=== PATIENT | female | born 1995 | race Caucasian/White ===

== ENCOUNTER 2020-06-20 11:56 | Outpatient (REF) | payer OTHER, SELFPAY ==
[2020-06-20 12:21] LABS: COVID-19 Test Negative (Negative)
== END 2020-06-20 11:57 | disposition home or self-care (01) ==
LOC: HO.LAB 11:56
PROVIDERS: Visit Provider Internal Medicine
DX: Z20.828 Contact with and (suspected) exposure to other viral communicable diseases (principal)
CPT/HCPCS: 87635

== ENCOUNTER 2020-06-22 18:02 | Outpatient (REF) | payer OTHER, SELFPAY ==
[2020-06-22 18:28] LABS: COVID-19 Test Negative (Negative)
== END 2020-06-22 18:03 | disposition home or self-care (01) ==
LOC: HO.LAB 18:02
PROVIDERS: Visit Provider Internal Medicine
DX: Z20.828 Contact with and (suspected) exposure to other viral communicable diseases (principal)
CPT/HCPCS: 87635

== ENCOUNTER 2020-06-27 13:37 | Outpatient (REF) | payer OTHER, SELFPAY ==
[2020-06-27 13:57] LABS: COVID-19 Test Negative (Negative)
== END 2020-06-27 13:38 | disposition home or self-care (01) ==
LOC: HO.LAB 13:37
PROVIDERS: Visit Provider Internal Medicine
DX: Z20.828 Contact with and (suspected) exposure to other viral communicable diseases (principal)
CPT/HCPCS: 87635

== ENCOUNTER 2020-07-16 09:21 | Outpatient (REF) | payer OTHER, SELFPAY ==
[2020-07-16 11:52] LABS: COVID-19 Test Negative (Negative)
== END 2020-07-16 09:22 | disposition home or self-care (01) ==
LOC: HO.EMPCOV 09:21
PROVIDERS: PCP Physician Assistant; Visit Provider Internal Medicine
DX: Z20.828 Contact with and (suspected) exposure to other viral communicable diseases (principal)
CPT/HCPCS: 87635; C9803

== ENCOUNTER 2020-07-20 10:31 | Outpatient (REF) | payer OTHER, SELFPAY ==
[2020-07-20 13:05] LABS: MANUAL DIFF FLAG NO
[2020-07-20 13:31] LABS: Alanine Aminotransferase 15 U/L (0-31); Albumin Level 4.3 g/dL (3.5-5.0); Alkaline Phosphatase 58 U/L (39-117); Anion Gap 11 (12-20); Aspartate Amino Transferase 16 U/L (5-31); Bilirubin Total 0.9 mg/dL (0.0-1.0); Blood Urea Nitrogen 9 mg/dL (9-16); Calcium 9.1 mg/dL (8.4-10.2); Carbon Dioxide 31 mmol/L (22-29); Chloride 100 mmol/L (96-108); Cholesterol 254 mg/dL; Estimated Glomerular Filt Rate > 60; Glucose Fasting 84 mg/dL (60-99); HDL Cholesterol 77 mg/dL; LDL Cholesterol Calculated 157 mg/dl; Potassium 4.3 mmol/l (3.3-5.1); Sodium 138 mmol/L (135-145); Triglycerides 100 mg/dL
[2020-07-20 13:39] LABS: TSH reflex Free T4 0.74 mIU/mL (0.32-4.0)
[2020-07-20 13:40] LABS: Basophils Absolute Auto 0.1 X10*3/uL (0.0-0.2); Basophils Percent Auto 0.9 % (0-2); Eosinophils Absolute Auto 0.5 X10*3/uL (0.0-0.4); Eosinophils Percent Auto 6.9 % (0-4); Hematocrit 44.2 % (37-47); Hemoglobin 14.2 g/dl (12.0-16.0); Imm Gran Abs Auto 0.05 X10*3/uL (0.00-0.03); Imm Gran Pct Auto 0.7 % (0.0-0.4); Lymphocytes Absolute Auto 2.1 X10*3/uL (1.2-4.9); Lymphocytes Percent Auto 27.2 % (20-40); Mean Corpuscular HGB Conc 32.1 g/dl (31.0-35.0); Mean Corpuscular Hemoglobin 30.4 pg (27.0-33.0); Mean Corpuscular Volume 94.6 fL (80-98); Mean Platelet Volume 9.4 fL (9.4-12.3); Monocytes Absolute Auto 0.6 X10*3/uL (0.1-1.2); Monocytes Percent Auto 8.1 % (2-11); Neutrophils Absolute Auto 4.2 X10*3/uL (2.0-8.3); Neutrophils Percent Auto 56.2 % (45-73); Platelet Count 357 X10*3/uL (160-400); Red Blood Count 4.67 X10*6/uL (4.20-5.50); Red Cell Distribution Width 12.6 % (11.0-16.0); White Blood Count 7.5 X10*3/uL (4.8-10.8)
== END 2020-07-20 10:32 | disposition home or self-care (01) ==
LOC: HO.LAB 10:31
PROVIDERS: PCP Physician Assistant; Visit Provider Physician Assistant
DX: E78.2 Mixed hyperlipidemia (principal)
CPT/HCPCS: 36415; 80053; 80061; 84443; 85025

== ENCOUNTER 2020-08-08 10:36 | Outpatient (REF) | payer OTHER, SELFPAY ==
[2020-08-08 11:05] LABS: COVID-19 Test Negative (Negative)
== END 2020-08-08 10:37 | disposition home or self-care (01) ==
LOC: HO.EMPCOV 10:36
PROVIDERS: Visit Provider Internal Medicine
DX: Z20.828 Contact with and (suspected) exposure to other viral communicable diseases (principal)
CPT/HCPCS: 87635; C9803

== ENCOUNTER 2020-08-24 09:14 | Outpatient (REF) | payer OTHER, SELFPAY ==
[2020-08-25 08:30] LABS: BV Int Neg Control Negative (Negative); BV Int Pos Control Positive (Positive)
[2020-08-26 04:47] LABS: C. trachomatis RNA TMA NOT DETECTED (NOT DETECTED); N. gonorrhoeae RNA TMA NOT DETECTED (NOT DETECTED)
== END 2020-08-24 09:15 | disposition home or self-care (01) ==
LOC: HO.LAB 09:14
PROVIDERS: PCP Physician Assistant; Visit Provider Advanced Practice Midwife
DX: Z01.419 Encounter for gynecological examination (general) (routine) without abnormal findings (principal); Z11.3 Encounter for screening for infections with a predominantly sexual mode of transmission; Z87.42 Personal history of other diseases of the female genital tract
CPT/HCPCS: 87480; 87491; 87510; 87591; 87660; 88141; 88142

== ENCOUNTER 2020-08-29 12:01 | Outpatient (REF) | payer OTHER, SELFPAY ==
[2020-08-29 12:13] LABS: COVID-19 Test Positive (Negative)
== END 2020-08-29 12:02 | disposition home or self-care (01) ==
LOC: HO.EMPCOV 12:01
PROVIDERS: Visit Provider Internal Medicine
DX: Z20.828 Contact with and (suspected) exposure to other viral communicable diseases (principal)
CPT/HCPCS: 87635; C9803

== ENCOUNTER 2020-12-27 10:02 | Outpatient (REF) | payer OTHER, SELFPAY ==
[2020-12-27 17:56] LABS: CT PCR NOT DETECTED (Not Detect.); NG PCR NOT DETECTED (Not Detect.)
[2020-12-28 08:45] LABS: BV Int Neg Control Negative (Negative); BV Int Pos Control Positive (Positive)
== END 2020-12-27 10:03 | disposition home or self-care (01) ==
LOC: HO.LAB 10:02
PROVIDERS: PCP Physician Assistant; Visit Provider Advanced Practice Midwife
DX: Z12.4 Encounter for screening for malignant neoplasm of cervix (principal); Z11.3 Encounter for screening for infections with a predominantly sexual mode of transmission; N76.0 Acute vaginitis; A60.00 Herpesviral infection of urogenital system, unspecified; B96.89 Other specified bacterial agents as the cause of diseases classified elsewhere; Z20.2 Contact with and (suspected) exposure to infections with a predominantly sexual mode of transmission; Z87.42 Personal history of other diseases of the female genital tract
CPT/HCPCS: 87480; 87491; 87510; 87591; 87660; 88142; 99212

== ENCOUNTER 2021-09-09 21:36 | Outpatient (REF) | payer OTHER, SELFPAY ==
[2021-09-09 22:04] LABS: COVID-19 Test Positive (Negative); IDNOW Serial# 9DD0AD1C
== END 2021-09-09 21:37 | disposition home or self-care (01) ==
LOC: HO.LAB 21:36
PROVIDERS: Referring Provider Internal Medicine; Visit Provider Internal Medicine
DX: Z20.822 Contact with and (suspected) exposure to COVID-19 (principal)
CPT/HCPCS: 87635

== ENCOUNTER 2021-12-30 00:25 | Outpatient (REF) | payer OTHER, SELFPAY ==
[2022-01-01 08:26] LABS: HBS Num1 5.34 mIU/mL (0-7.99); HBc Num1 0.12 S/CO (0.00-0.79); HBsAGNum1 0.17 S/CO (0.00-0.99); Hepatitis B Core Antibody Nonreactive (Nonreactive); Hepatitis B Surface Antigen Negative (Negative); ~HepC Num1 0.07 S/CO (0.00-0.79); ~Hepatitis B Surface Antibody NONREACTIVE (Nonreactive); ~Hepatitis C Antibody Nonreactive (Nonreactive)
[2022-01-02 17:46] LABS: Rubeola IgG (Measles) <13.50 AU/mL
[2022-01-04 10:11] LABS: Rubella IgG Antibody 1.21 Index
== END 2021-12-30 00:26 | disposition home or self-care (01) ==
LOC: HO.LAB 00:25
PROVIDERS: PCP Physician Assistant; Visit Provider Physician Assistant
DX: Z01.84 Encounter for antibody response examination (principal)
CPT/HCPCS: 36415; 86704; 86706; 86735; 86762; 86765; 86787; 86803; 87340

== ENCOUNTER 2022-02-21 10:49 | Outpatient (REF) | payer OTHER, SELFPAY ==
[2022-02-21 12:23] LABS: HBS Num1 79.63 mIU/mL (0-7.99); ~Hepatitis B Surface Antibody REACTIVE (Nonreactive)
[2022-02-23 01:06] LABS: Rubella IgG Antibody <0.90 Index; Rubeola IgG (Measles) <13.50 AU/mL
[2022-02-23 14:26] LABS: TS Negative Control Passed; TS Panel A 0; TS Panel B 0; TS Positive Control Passed; TSpotTB Negative (Negative)
== END 2022-02-21 10:50 | disposition home or self-care (01) ==
LOC: HO.LAB 10:49
PROVIDERS: PCP Physician Assistant; Visit Provider Physician Assistant
DX: Z01.84 Encounter for antibody response examination (principal); Z11.1 Encounter for screening for respiratory tuberculosis
CPT/HCPCS: 36415; 86481; 86706; 86735; 86762; 86765; 86787

== ENCOUNTER 2022-03-12 14:26 | Outpatient (REF) | payer OTHER, SELFPAY ==
[2022-03-12 18:05] LABS: CT PCR NOT DETECTED (Not Detect.); NG PCR NOT DETECTED (Not Detect.)
[2022-03-13 12:29] LABS: BV Int Neg Control Negative (Negative); BV Int Pos Control Positive (Positive)
[2022-03-17 08:31] LABS: HPV 16 RNA NOT DETECTED (NOT DETECTED); HPV mRNA E6/E7 rflx Detected (Not Detected)
== END 2022-03-12 14:27 | disposition home or self-care (01) ==
LOC: HO.LAB 14:26
PROVIDERS: Visit Provider Advanced Practice Midwife
DX: Z01.419 Encounter for gynecological examination (general) (routine) without abnormal findings (principal); Z11.51 Encounter for screening for human papillomavirus (HPV); Z87.42 Personal history of other diseases of the female genital tract
CPT/HCPCS: 81025; 87480; 87491; 87510; 87591; 87624; 87625; 87660; 88142

== ENCOUNTER 2022-05-01 08:50 | Outpatient (REF) | payer OTHER, SELFPAY | END 2022-05-01 08:51 | disposition home or self-care (01) | LOC: HO.LAB 08:50 | PROVIDERS: PCP Physician Assistant; Visit Provider Obstetrics & Gynecology | DX: R87.612 Low grade squamous intraepithelial lesion on cytologic smear of cervix (LGSIL) (principal) | CPT/HCPCS: 57454; 88305; 88342; 88360 ==

== ENCOUNTER → 2022-05-15 11:17 | Outpatient (BNVA) | payer OTHER, SELFPAY | PROVIDERS: PCP Physician Assistant; Visit Provider Obstetrics & Gynecology | DX: N87.1 Moderate cervical dysplasia (principal); Z98.890 Other specified postprocedural states | CPT/HCPCS: 99212 ==

== ENCOUNTER 2022-07-09 14:44 | Inpatient (IN) | payer OTHER, SELFPAY ==
--- NOTE | ~2022-07-09 | XR_ITS ---
EXAMINATION: XR CHEST CLINICAL INFORMATION: Cough and wheeze COMPARISON: None TECHNIQUE: 2 views of the chest were obtained. FINDINGS: Lungs grossly clear. No pleural effusions. Heart and pulmonary vessels are normal. XR/XR chest 2V IMPRESSION: No active disease.
[2022-07-09 15:21] VITALS: BP 147/85; PULSE 116; RESP 18; TEMP 37.3; O2SAT 97; BMI 22.8
[2022-07-09] MEDS: Albuterol Sulfate 2.5 MG, Albuterol Sulfate (0.083%) 2.5 MG 5 MG INHALE (15:25)
[2022-07-09 15:29] VITALS: PULSE 120; RESP 18; O2SAT 96
--- NOTE | 2022-07-09 15:40 | ECG_ITS ---
Test Reason : SOB Blood Pressure : / mmHG Vent. Rate : 106 BPM Atrial Rate : 106 BPM P-R Int : 150 ms QRS Dur : 086 ms QT Int : 384 ms P-R-T Axes : 080 093 065 degrees QTc Int : 510 ms Sinus tachycardia Biatrial enlargement Rightward axis Nonspecific T wave abnormality Inferior leads Pulmonary disease pattern Abnormal ECG No previous ECGs available Referred By: Emily Robledo Electronically Signed By:PIA RENDON MD
--- NOTE | 2022-07-09 15:41 | ED.ASTHMA ---
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 She reports associated nausea and diarrhea. She reports she has not had an asthma exacerbation many years. She does not have an albuterol inhaler at home or nebulizer. She reports she has never been intubated for her asthma. She denies any recent travel. She denies any dizziness, headaches, neck pain/stiffness, ear pain, vomiting, abdominal pain, flank pain, dysuria, hematuria, lower extremity more calf tenderness or any other symptoms complaints or concerns at this time. MD complaint: asthma attack , shortness of breath and wheezing Onset (ago): day(s) (3) Severity: moderate Context: smoke exposure (daily) Associated symptoms: productive cough and fever Asthma History: childhood onset Related Data Home Medications Medication Instructions Recorded Confirmed dextroamphetamine-amphetamine ER 1 cap PO DAILY 07/09/22 07/09/22 10 mg 24hr capsule,extend release Allergies Allergy/AdvReac Type Severity Reaction Status Date / Time No Known Allergies Allergy Verified 05/01/22 08:59 Review of Systems Review of Systems: Constitutional : + fevers/chills/50/malaise, denies med noncompliance, no history of PE or DVT, denies recent travel ENT/Mouth : + nasal congestion/rhinorrhea, + sore throat, No Hoarseness, No Sinus Pressure, No Ear Pain, No stridor, Eyes: No Redness, No Discharge, No Vision Changes Cardiovascular : No Chest Pain, + SOB, No Dyspnea on Exertion, No Edema, no pleurisy, Respiratory : + Cough, + wheezing, + Sputum, no stridor, no hemoptysis, Gastrointestinal : + Nausea, No Vomiting, + Diarrhea, No abdominal Pain Genitourinary : No Dysuria, No Hematuria Musculoskeletal : No joint pain/swelling, No Myalgias Extremities: no extremity swelling /pain Skin : No rash, no itching, no swelling Neuro : No Weakness, No Numbness, No Headache, No Dizziness, No Paresthesias Psych : No anxiety, depression Heme/Lymph: No Bruising, No Bleeding Endocrine : No Polyuria, No Polydipsia Yes all other systems are reviewed and are negative [facility] Past Medical History Attestation statement: The following information was validated with the patient. Source: old records reviewed and nursing notes reviewed Medical History Anxiety Herpes simplex type 1 infection Insomnia Mixed hyperlipidemia Vitamin D deficiency Surgical History Hx of wisdom tooth extraction Family History Family History Father No problems noted. 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 Heart rate 116. Respiration normal. Oxygen saturation normal. Appearance: Alert. Oriented X3. In acute respiratory distress. Head: Normal external exam. Normocephalic. Atraumatic. Eyes: PERRLA. EOMI. Conjunctiva and sclera normal. Eyelids normal. ENT: EAC normal. TM's Normal. Pharynx normal. Uvula midline. Moist mucous membranes. No trismus noted. No drooling noted. No muffled voice noted. No stridor noted. Patient tolerating secretions well. Neck: Normal inspection. Neck supple. FROM. No adenopathy. Thyroid Normal. No meningeal signs. No neck mass noted. CVS: Normal heart rate and rhythm. Heart sound normal. Pulses normal throughout. No murmurs/rales/gallops. Respiratory: In acute respiratory distress with decreased breath sounds and inspiratory and expiratory wheezing throughout and questioning rhonchi to the right lower lobe. Pain with inspiration. No rales noted. Patient noted to have accessory muscle usage in tracheal tugging and abdominal retractions noted. Abdomen: Soft and nontender. Bowel sounds normal in all 4 quadrants. No distention noted. No organomegaly noted. No visible injury noted. Back: No CVA tenderness. Full range of motion noted. No rashes/lesion/induration/fluctuance or signs of infection noted. Skin: Skin warm and dry. Normal skin color. Normal skin turgor. No rashes/lesions/lacerations noted. Extremities: No lower extremity edema. Extremities exhibit normal range of motion. Extremities nontender. Neuro: Oriented X 3. No motor deficit. No sensory deficit. Reflexes normal. Normal steady gait. No focal neuro deficits noted. Vascular: + radial pulses/+ 2 distal pedal pulses/+2 dorsalis pedis b/l. Normal cap refill. No cyanosis noted to upper extremity nails and lower extremity toes nails. 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 She reports associated nausea and diarrhea. She reports she has not had an asthma exacerbation many years. She does not have an albuterol inhaler at home or nebulizer. She reports she has never been intubated for her asthma. She denies any recent travel. Plan: Will obtain labs, blood cultures, lactic acid, EKG, chest x-ray. Provide a L of IV fluids, an hour long breathing treatment, 125 mg of IV Solu-Medrol and 2 g of magnesium along with Robitussin with codeine and Zofran and re-evaluate. Reevaluation(s) Reevaluation #1: - patient positive for RSV. - carbon dioxide 19. Anion gap 21. Total protein 8.6. Otherwise all other labs are within normal limits. - chest x-ray negative. - although patient requiring 2 L of nasal cannula oxygen as her oxygen to 87 therefore will admit at this time for exacerbation with bronchospasm with RSV and hypoxia patient understands agrees with this plan. Medications Administered Discontinued Medications Generic Name Dose Route Start Last Admin Trade Name Freq PRN Reason Stop Dose Admin Albuterol Sulfate 2.5 mg/ 5 mg 07/09/22 15:12 07/09/22 15:25 Albuterol Sulfate 2.5 mg INHALE 07/09/22 15:13 5 mg ONCE ONE Administration Albuterol Sulfate 2.5 mg/ 0 mg 07/09/22 15:45 07/09/22 15:54 Albuterol/Ipratropium 3 ml INHALE 07/09/22 15:46 2.5 each ONCE ONE Administration Guaifenesin/Codeine Phosphate 10 ml 07/09/22 15:12 07/09/22 15:52 Guaifen/Codeine Sf 200/20/10ml 10 Ml Liquid PO 07/09/22 15:13 10 ml ONCE ONE Administration Sodium Chloride 1,000 mls @ 999 mls/hr 07/09/22 15:45 07/09/22 17:59 Ns IVCONT 07/09/22 16:45 Infused .Q1H1M ROSAURA Infusion Magnesium Sulfate 2 gm in 50 mls @ 25 mls/hr 07/09/22 15:44 07/09/22 15:52 Magnesium Sulfate/H2o IV 07/09/22 17:43 25 mls/hr ONCE ONE Administration Ceftriaxone Sodium 2 gm/ 50 mls @ 100 mls/hr 07/09/22 17:15 07/09/22 18:26 Sodium Chloride IV 07/09/22 17:44 100 mls/hr ONCE ONE Administration Ibuprofen 800 mg 07/09/22 17:18 07/09/22 18:25 Ibuprofen 800 Mg Tablet PO 07/09/22 17:19 800 mg ONCE ONE Administration Methylprednisolone Sodium Succinate 125 mg 07/09/22 15:17 07/09/22 15:52 Methylprednisolone Sod Succ 125 Mg/2 Ml Vial IVPUSH 07/09/22 15:18 125 mg ONCE ONE Administration Ondansetron HCl 4 mg 07/09/22 15:53 07/09/22 16:01 Ondansetron Hcl 4 Mg/2 Ml Vial IVPUSH 07/09/22 15:54 4 mg ONCE ONE Administration MDM - Asthma Medical Records Attestation: I reviewed the patient's medical records. Lab Data Attestation: I reviewed the patient's lab results. Result diagrams: 07/09/22 15:43 07/09/22 15:43 Labs: Lab Results 07/09/22 07/09/22 07/09/22 Range/Units 14:55 15:43 15:43 WBC 9.9 (4.8-10.8) X10*3/uL RBC 5.10 (4.20-5.50) X10*6/uL Hgb 15.7 (12.0-16.0) g/dl Hct 46.2 (37.0-47.0) % MCV 90.6 (80.0-98.0) fL MCH 30.8 (27.0-33.0) pg MCHC 34.0 (31.0-35.0) g/dl RDW 12.0 (11.0-16.0) % Plt Count 306 (160-400) X10*3/uL MPV 9.0 L (9.4-12.3) fL Immature Gran % (Auto) 0.5 H (0.0-0.4) % Neut % (Auto) 63.5 (45-73) % Lymph % (Auto) 22.5 (20-40) % [place] % (Auto) 11.3 H (2-11) % Eos % (Auto) 1.4 (0-4) % Baso % (Auto) 0.8 (0-2) % Lymph # (Auto) 2.2 (1.2-4.9) X10*3/uL [place] # (Auto) 1.1 (0.1-1.2) X10*3/uL Eos # (Auto) 0.1 (0.0-0.4) X10*3/uL Baso # (Auto) 0.1 (0.0-0.2) X10*3/uL Abs Immat Gran (auto) 0.05 H (0.00-0.03) X10*3/uL Absolute Neuts (auto) 6.3 (2.0-8.3) x10*3/uL Absolute Nucleated RBC 0.000 (0.0-0.012) X10*3/uL Nucleated RBC % (auto) 0.0 (0.0-0.2) /100WBC Sodium Cancelled Potassium Cancelled Chloride Cancelled Carbon Dioxide Cancelled Anion Gap Cancelled BUN Cancelled Creatinine Cancelled Estim Creat Clear Calc Cancelled Estimated GFR Cancelled Random Glucose Cancelled Lactic Acid (0.5-2.0) mmol/L Calcium Cancelled Magnesium Cancelled Total Bilirubin Cancelled AST Cancelled ALT Cancelled Alkaline Phosphatase Cancelled Total Protein Cancelled Albumin Cancelled Beta HCG, Quant mIU/mL Influenza Type A (PCR) NEGATIVE (Negative) Influenza Type B (PCR) NEGATIVE (Negative) RSV RNA Qual (PCR) POSITIVE A (Negative) SARS-CoV-2 RNA (RT-PCR) NEGATIVE (Negative) 07/09/22 07/09/22 Range/Units 15:43 15:43 WBC (4.8-10.8) X10*3/uL RBC (4.20-5.50) X10*6/uL Hgb (12.0-16.0) g/dl Hct (37.0-47.0) % MCV (80.0-98.0) fL MCH (27.0-33.0) pg MCHC (31.0-35.0) g/dl RDW (11.0-16.0) % Plt Count (160-400) X10*3/uL MPV (9.4-12.3) fL Immature Gran % (Auto) (0.0-0.4) % Neut % (Auto) (45-73) % Lymph % (Auto) (20-40) % [place] % (Auto) (2-11) % Eos % (Auto) (0-4) % Baso % (Auto) (0-2) % Lymph # (Auto) (1.2-4.9) X10*3/uL [place] # (Auto) (0.1-1.2) X10*3/uL Eos # (Auto) (0.0-0.4) X10*3/uL Baso # (Auto) (0.0-0.2) X10*3/uL Abs Immat Gran (auto) (0.00-0.03) X10*3/uL Absolute Neuts (auto) (2.0-8.3) x10*3/uL Absolute Nucleated RBC (0.0-0.012) X10*3/uL Nucleated RBC % (auto) (0.0-0.2) /100WBC Sodium 136 Potassium 4.2 Chloride 100 Carbon Dioxide 19 L Anion Gap 21 H BUN 11 Creatinine 0.80 Estim Creat Clear Calc 107.4 Estimated GFR > 60 Random Glucose 96 Lactic Acid 1.9 (0.5-2.0) mmol/L Calcium 9.7 D Magnesium 2.1 Total Bilirubin 0.9 AST 23 D ALT 16 Alkaline Phosphatase 72 D Total Protein 8.6 H D Albumin 5.0 Beta HCG, Quant < 2 mIU/mL Influenza Type A (PCR) (Negative) Influenza Type B (PCR) (Negative) RSV RNA Qual (PCR) (Negative) SARS-CoV-2 RNA (RT-PCR) (Negative) Imaging Data Chest x-ray: Attestation: I personally reviewed and interpreted this imaging study as follows: Radiologist's impression: FINDINGS: Lungs grossly clear. No pleural effusions. Heart and pulmonary vessels are normal. XR/XR chest 2V IMPRESSION: No active disease. ECG Data Attestation: I personally reviewed and interpreted this ECG as follows: ECG interpretation date: 07/09/22 ECG interpretation time: 16:32 Prior ECG tracings: not available for review Interpretation: Sinus tachycardia with ventricular rate of 106 with biatrial enlargement rate rightward axis with pulmonary disease pattern no acute ischemic change are noted. Critical Care Time Critical Care Time Critical Care Time: Yes Total Critical Care Time: 60 Attestation: I personally attest to this time spent taking care of the patient Discharge Plan Discharge Clinical Impression: Respiratory syncytial virus (RSV), Asthma exacerbation, Acute bronchitis due to respiratory syncytial virus, Hypoxia Patient Disposition: Admitted As Inpatient
[2022-07-09 15:43] LABS: Influenza A PCR NEGATIVE (Negative); Influenza B PCR NEGATIVE (Negative); Resp Syncy Virus RNA Qual PCR POSITIVE (Negative); SARS COV2 PCR INHOUSE NEGATIVE (Negative)
[2022-07-09 15:52] LABS: MANUAL DIFF FLAG NO
[2022-07-09] MEDS: methylPREDNISolone Sod Succ 125 MG/2 ML VIAL IVPUSH (15:52)
[2022-07-09] MEDS: Magnesium Sulfate/H2O 2 GM/50 ML PIGGYBACK IV (15:52)
[2022-07-09] MEDS: guaiFEN/Codeine SF 200/20/10ML 10 ML LIQUID PO (15:52)
[2022-07-09] MEDS: 0.9 % Sodium Chloride 1,000 ML 999 ML IVCONT (15:53)
[2022-07-09] MEDS: Albuterol Sulfate 2.5 MG, Albuterol/Iprat 2.5/0.5MG 3 ML 3 ML INHALE (15:54)
[2022-07-09 15:56] LABS: Basophils Absolute Auto 0.1 X10*3/uL (0.0-0.2); Basophils Percent Auto 0.8 % (0-2); Eosinophils Absolute Auto 0.1 X10*3/uL (0.0-0.4); Eosinophils Percent Auto 1.4 % (0-4); Hematocrit 46.2 % (37.0-47.0); Hemoglobin 15.7 g/dl (12.0-16.0); Imm Gran Abs Auto 0.05 X10*3/uL (0.00-0.03); Imm Gran Pct Auto 0.5 % (0.0-0.4); Lymphocytes Absolute Auto 2.2 X10*3/uL (1.2-4.9); Lymphocytes Percent Auto 22.5 % (20-40); Mean Corpuscular Hemoglobin 30.8 pg (27.0-33.0); Mean Corpuscular Volume 90.6 fL (80.0-98.0); Monocytes Absolute Auto 1.1 X10*3/uL (0.1-1.2); Monocytes Percent Auto 11.3 % (2-11); Neutrophils Absolute Auto 6.3 x10*3/uL (2.0-8.3); Neutrophils Percent Auto 63.5 % (45-73); Platelet Count 306 X10*3/uL (160-400); White Blood Count 9.9 X10*3/uL (4.8-10.8)
[2022-07-09 15:57] VITALS: PULSE 117; RESP 20; O2SAT 99
[2022-07-09] MEDS: ondansetron HCL 4 MG/2 ML VIAL IVPUSH (16:01)
--- NOTE | 2022-07-09 16:05 | PC.NURSE ---
patient a/ox4 . pearrla . heart rate tachycardic regular at 115 . lungs diminished in right lower lobe . tightness noted in bilateral upper lobes . RT at bedside for neb treatments X2 . skin moist , pink . breathing labored . patient has dry non productive cough . IV placed in left A.C . Blood work obtained and sent to Lab . patient has been medicated as ordered with predisone , zofran , codeine and IV fluids started . patient began to have episodes where her o2 dropped down into 87 provider made aware patient given supplemental O2 at 2l and o2 increased to 97% . patient made aware of plan of care .
[2022-07-09 16:12] LABS: Lactic Acid 1.9 mmol/L (0.5-2.0)
[2022-07-09 16:21] LABS: Alanine Aminotransferase 16 U/L (0-31); Alkaline Phosphatase 72 U/L (39-117); Anion Gap 21 (12-20); Aspartate Amino Transferase 23 U/L (5-31); Bilirubin Total 0.9 mg/dL (0.0-1.0); Blood Urea Nitrogen 11 mg/dL (9-16); Calcium 9.7 mg/dL (8.4-10.2); Carbon Dioxide 19 mmol/L (22-29); Chloride 100 mmol/L (96-108); Creatinine Clr Calc Pharmacy 107.4; Estimated Glomerular Filt Rate > 60; Glucose Random 96 mg/dL (60-115); Magnesium 2.1 mg/dL (1.6-2.6); Potassium 4.2 mmol/L (3.3-5.1); Sodium 136 mmol/L (135-145); Total Protein 8.6 g/dL (6.5-8.0)
[2022-07-09 16:23] LABS: HCG Quantitative < 2 mIU/mL
--- NOTE | 2022-07-09 18:03 | PHA.MEDREC ---
Pharmacy Consult ? Medication Reconciliation Pharmacy has completed the medication reconciliation.
[2022-07-09] MEDS: Ibuprofen 800 MG TABLET PO (18:25)
[2022-07-09] MEDS: cefTRIAXone sodium 2 GM in 0.9 % Sodium Chloride 50 ML IV (18:26)
--- NOTE | 2022-07-09 19:26 | PM.IMHP ---
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 Patient states symptoms started Saturday. She initially had upper respiratory tract symptoms with chills. Subsequently she developed a dry cough which remained persistent. It was associated with wheezing that started Saturday. Patient also had poor appetite which generalized weakness and noticed dyspnea with exertion and hence decided to present to the ER. Patient states she was diagnosed with asthma as a child and previously was on inhalers. Currently not on any home maintenance inhalers. No chest discomfort, palpitations, abdominal discomfort, nausea, vomiting, changes in urinary or bowel habits. Patient has never been intubated for asthma In the emergency department, patient was found to be hypoxemic and wheezing. Review of Systems Constitutional: Constitutional: Reports fatigue and Reports lethargy Cardiovascular: Cardiovascular: Reports no additional cardiovascular complaints and Reports dyspnea on exertion Respiratory: Respiratory: Reports cough, Reports dyspnea on exertion and Reports wheezing Gastrointestinal: Gastrointestinal: Reports no additional gastrointestinal complaints Genitourinary: Genitourinary: Reports no additional female genitourinary complaints Musculoskeletal: Musculoskeletal: Reports no additional musculoskeletal complaints Endocrine: Endocrine: Reports fatigue Allergic/Immunologic: Allergic/Immunologic: Reports wheezing [facility] Medical History (Updated 07/09/22 @ 19:30 by Yolanda Garrison MD) Anxiety Asthma Herpes simplex type 1 infection Insomnia Mixed hyperlipidemia Vitamin D deficiency Family History Father No problems noted. 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 [employer] Gender identity: Female Cognitive needs: No Hearing needs: No Vision needs: No Meds Allergies Allergy/AdvReac Type Severity Reaction Status Date / Time No Known Allergies Allergy Verified 05/01/22 08:59 Active Medications: Current Medications Acetaminophen (Acetaminophen 325 Mg Tablet) 650 mg PO Q6H PRN PRN Reason: Pain, Mild (Pain Scale 1-3) Albuterol/Ipratropium (Albuterol/Iprat 2.5/0.5mg 3 Ml Ampul.Neb) 3 ml INHALE Q4H PRN PRN Reason: wheezing Albuterol/Ipratropium (Albuterol/Iprat 2.5/0.5mg 3 Ml Ampul.Neb) 3 ml INHALE RQ4H [facility] Guaifenesin/Codeine Phosphate (Guaifen/Codeine Sf 200/20/10ml 10 Ml Liquid) 5 ml PO Q4H PRN PRN Reason: cough Melatonin (Melatonin 3 Mg Tablet) 6 mg PO BEDTIME PRN PRN Reason: Insomnia Ondansetron HCl (Ondansetron Hcl 4 Mg/2 Ml Vial) 4 mg IVPUSH Q8H PRN PRN Reason: Nausea and Vomiting Sodium Chloride (0.9 % Sodium Chloride Flush 3 Ml Syringe) [address] [facility] Home Medications Medication Instructions Recorded Confirmed Last Taken Type dextroamphetamine-amphetamine ER 1 cap PO DAILY 07/09/22 07/09/22 Unknown History 10 mg 24hr capsule,extend release Physical Exam Vital Signs and Narrative: Vital Signs: Last Vital Signs Temp 99.2 F 07/09/22 15:21 Pulse 117 H 07/09/22 15:57 Resp 20 07/09/22 15:57 BP 147/85 H 07/09/22 15:21 Pulse Ox 97 07/09/22 15:21 O2 Del Method 07/09/22 15:21 BMI result Body Mass Index 22.8 Young female lying in bed in mild distress Neck supple, no JVD tachycardic with regular rhythm, S1-S2 heard Regular breath sounds bilaterally, bilateral expiratory wheezes without crackles Abdomen soft nontender, no guarding, no rigidity Patient is awake, alert and oriented to self, place, time and person ; no focal motor deficit Psych: Normal mood No pedal edema Results Labs CBC and Chem 7: 07/09/22 15:43 07/09/22 15:43 Labs: Laboratory Results - last 24 hr 07/09/22 07/09/22 07/09/22 14:55 15:43 15:43 MCV 90.6 MCH 30.8 MCHC 34.0 RDW 12.0 Plt Count 306 MPV 9.0 L Immature Gran % (Auto) 0.5 H Neut % (Auto) 63.5 Lymph % (Auto) 22.5 [place] % (Auto) 11.3 H Eos % (Auto) 1.4 Baso % (Auto) 0.8 Lymph # (Auto) 2.2 [place] # (Auto) 1.1 Eos # (Auto) 0.1 Baso # (Auto) 0.1 Abs Immat Gran (auto) 0.05 H Absolute Neuts (auto) 6.3 Absolute Nucleated RBC 0.000 Nucleated RBC % (auto) 0.0 Anion Gap Cancelled Estim Creat Clear Calc Cancelled Estimated GFR Cancelled Random Glucose Cancelled Lactic Acid Calcium Cancelled Magnesium Cancelled Total Bilirubin Cancelled AST Cancelled ALT Cancelled Alkaline Phosphatase Cancelled Total Protein Cancelled Albumin Cancelled Beta HCG, Quant Influenza Type A (PCR) NEGATIVE Influenza Type B (PCR) NEGATIVE RSV RNA Qual (PCR) POSITIVE A SARS-CoV-2 RNA (RT-PCR) NEGATIVE 07/09/22 07/09/22 15:43 15:43 MCV MCH MCHC RDW Plt Count MPV Immature Gran % (Auto) Neut % (Auto) Lymph % (Auto) [place] % (Auto) Eos % (Auto) Baso % (Auto) Lymph # (Auto) [place] # (Auto) Eos # (Auto) Baso # (Auto) Abs Immat Gran (auto) Absolute Neuts (auto) Absolute Nucleated RBC Nucleated RBC % (auto) Anion Gap 21 H Estim Creat Clear Calc 107.4 Estimated GFR > 60 Random Glucose 96 Lactic Acid 1.9 Calcium 9.7 D Magnesium 2.1 Total Bilirubin 0.9 AST 23 D ALT 16 Alkaline Phosphatase 72 D Total Protein 8.6 H D Albumin 5.0 Beta HCG, Quant < 2 Influenza Type A (PCR) Influenza Type B (PCR) RSV RNA Qual (PCR) SARS-CoV-2 RNA (RT-PCR) Imaging Radiologist's Impressions: Impressions Chest X-Ray 07/09/22 16:45 IMPRESSION: No active disease. 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 Patient states symptoms started Saturday. She initially had upper respiratory tract symptoms with chills. #. Acute hypoxemic respiratory failure secondary to: #. Asthma exacerbation in the setting of: #. Acute RSV infection - will admit patient with O2 supplementation. Currently on 2 L, monitor and wean as tolerated. Maintain oxygen saturation greater than 92%. Scheduled DuoNebs with p.r.n.. Patient received steroids and magnesium sulfate in the ER, continue systemic steroids. Antitussives prn. No concern for bacterial superinfection, defer antibiotics. Will need bronchodilator inhaler at discharge #. ADHD -hold for now DVT prophylaxis: None. Patient is ambulatory Full code Regular diet Admit as inpatient and will require two night minimum hospital stay for need for supplemental oxygen and scheduled DuoNebs. Quality Stroke Does the patient have a stroke diagnosis?: No VTE Prior VTE?: No VTE Risk Level:: Medical - low VTE Device Contraindication: Treatment Not Indicated VTE Drug Contraindication: Treatment Not Indicated
[2022-07-09 20:34] VITALS: BP 126/54; PULSE 73; RESP 17; TEMP 36.1; O2SAT 93
[2022-07-09] MEDS: Albuterol/Iprat 2.5/0.5MG 3 ML AMPUL.NEB INHALE (21:24)
[2022-07-09 21:26] VITALS: PULSE 73; RESP 18; O2SAT 97
--- NOTE | 2022-07-09 21:41 | MHC.CM.PN ---
CM met with admitted patient in ED Overflow with bed assignment pending. Pt is [employer] employee. 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 Pt has RSV. A&Ox4. Lives alone. Pf[employer] x2. Pt is 26 years old. No DME/services. Declines HCP at this time. D/C plan: Home without services. Pt will drive herself home. CM will follow for d/c needs.
[2022-07-09] MEDS: guaiFEN/Codeine SF 200/20/10ML 10 ML LIQUID 5 ML PO (23:27)
[2022-07-10] MEDS: Acetaminophen 325 MG TABLET 650 MG PO (01:39)
[2022-07-10] MEDS: Melatonin 3 MG TABLET 6 MG PO (01:39)
[2022-07-10] MEDS: methylPREDNISolone Sod Succ 40 MG/ML VIAL IVPUSH (06:08)
[2022-07-10 06:10] VITALS: PULSE 80; RESP 15; O2SAT 94
[2022-07-10 06:41] VITALS: BP 129/79; PULSE 70; RESP 14; TEMP 36.6; O2SAT 96; O2SAT 99
[2022-07-10 07:44] LABS: MANUAL DIFF FLAG NO
[2022-07-10 07:46] LABS: Basophils Percent Auto 0.3 % (0-2); Eosinophils Percent Auto 0.1 % (0-4); Hematocrit 40.9 % (37.0-47.0); Hemoglobin 13.9 g/dl (12.0-16.0); Imm Gran Abs Auto 0.03 X10*3/uL (0.00-0.03); Imm Gran Pct Auto 0.4 % (0.0-0.4); Lymphocytes Percent Auto 14.4 % (20-40); Mean Corpuscular Hemoglobin 31.1 pg (27.0-33.0); Mean Corpuscular Volume 91.5 fL (80.0-98.0); Mean Platelet Volume 9.3 fL (9.4-12.3); Monocytes Absolute Auto 0.5 X10*3/uL (0.1-1.2); Monocytes Percent Auto 7.4 % (2-11); Neutrophils Absolute Auto 5.4 x10*3/uL (2.0-8.3); Neutrophils Percent Auto 77.4 % (45-73); Platelet Count 292 X10*3/uL (160-400); Red Blood Count 4.47 X10*6/uL (4.20-5.50); Red Cell Distribution Width 11.9 % (11.0-16.0); White Blood Count 6.9 X10*3/uL (4.8-10.8)
[2022-07-10 08:00] VITALS: O2SAT 94
[2022-07-10] MEDS: 0.9 % Sodium Chloride Flush 3 ML SYRINGE IVFLUSH (08:26)
[2022-07-10] MEDS: ondansetron HCL 4 MG/2 ML VIAL IVPUSH (08:26)
[2022-07-10 08:34] VITALS: PULSE 80; RESP 18; O2SAT 99
[2022-07-10] MEDS: Albuterol/Iprat 2.5/0.5MG 3 ML AMPUL.NEB INHALE ×2 (08:34→12:26)
[2022-07-10 11:11] LABS: Anion Gap 19 (12-20); Blood Urea Nitrogen 9 mg/dL (9-16); Calcium 9.1 mg/dL (8.4-10.2); Carbon Dioxide 20 mmol/L (22-29); Chloride 104 mmol/L (96-108); Creatinine Clr Calc Pharmacy 119.4; Estimated Glomerular Filt Rate > 60; Glucose Random 130 mg/dL (60-115); Potassium 4.3 mmol/L (3.3-5.1); Sodium 139 mmol/L (135-145)
[2022-07-10] MEDS: guaiFEN/Codeine SF 200/20/10ML 10 ML LIQUID 5 ML PO (11:56)
[2022-07-10 12:26] VITALS: PULSE 71; RESP 18; O2SAT 91
--- NOTE | 2022-07-10 13:16 | P.DS_ITS ---
DS: Providers Provider Date of Service: 07/10/22 Date of admission: 07/09/22 19:08 Primary care physician: Kali Garza PA-C Consults: 07/10/22 09:51 Consult to Pulmonology Routine Consulting Provider: Maria C Dobbins Reason for consultation: ashtma exacerbation Has provider been notified: No DS: Diagnosis Discharge Diagnosis (1) Asthma exacerbation: Status: Acute (2) Acute bronchitis due to respiratory syncytial virus: Status: Acute (3) Hypoxia: Status: Acute (4) ADHD (attention deficit hyperactivity disorder): Status: Acute DS: Summary Hospital Course Hospital Course: Date of Service: 07/09/22 Chief Complaint: Dyspnea and cough 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 Patient states symptoms started Saturday.? She initially had upper respiratory tract symptoms with chills. Subsequently she developed a dry cough which remained persistent. It was associated with wheezing that started Saturday.? Patient also had poor appetite which generalized weakness and noticed dyspnea with exertion and hence decided to present to the ER.? Patient states she was diagnosed with asthma as a child and previously was on inhalers.? Currently not on any home maintenance inhalers.? No chest discomfort, palpitations, abdominal discomfort, nausea, vomiting, changes in urinary or bowel habits.? Patient has never been intubated for asthma In the emergency department, patient was found to be hypoxemic and wheezing. Hospital course: Patient was admitted do to asthma exacerbation precipitated by respriatory RSV causing signficantly difficulty breathing yet no hypoxia. She was admitted and treated with bronchodilators scheduled and PRN, IV solumedrol and over her stay in the hosptal has improved. She will be discharged with oral prednisone for 3 more day, albuterol MDI, tesolon ambrose in additon to robitussin for cough. She had asthma as a child but has not had symptoms for years, given the severity of her symptoms will refre to outpatient pulmonology evaluation. She is comfortable going home today, she is been afebrile more than 24 hours Time Spent with Patient Time attestation: Total time spent providing and/or coordinating discharge services: Discharge coordination time: Greater than 30 minutes Quality: Safe Use of Opioids Does Pt have an Active Cancer Diagnosis on the Problem List?: No Quality: Stroke Does the patient have a stroke diagnosis?: No Physical Exam Vital Signs: Vital Signs: Last Vital Signs Temp 97.8 F 07/10/22 06:41 Pulse 71 07/10/22 12:26 Resp 18 07/10/22 12:26 BP 129/79 07/10/22 06:41 Pulse Ox 94 07/10/22 08:00 O2 Del Method 07/10/22 06:41 O2 Flow Rate 2 07/10/22 06:41 BMI result Body Mass Index 22.8 General: AO X 3, no acute distress Resp: some rhonchi, no wheezes, no accessory muscle use CVS: S1,S2,RRR GI: +BS, NT, no distention Skin: No rash Neuro: motor grossly intact Psych: appropriate affect DS: Data Data Completed and Pending Labs on day of discharge: Laboratory Results - last 24 hr 07/09/22 07/09/22 07/09/22 14:55 15:43 15:43 WBC 9.9 RBC 5.10 Hgb 15.7 Hct 46.2 MCV 90.6 MCH 30.8 MCHC 34.0 RDW 12.0 Plt Count 306 MPV 9.0 L Immature Gran % (Auto) 0.5 H Neut % (Auto) 63.5 Lymph % (Auto) 22.5 [place] % (Auto) 11.3 H Eos % (Auto) 1.4 Baso % (Auto) 0.8 Lymph # (Auto) 2.2 [place] # (Auto) 1.1 Eos # (Auto) 0.1 Baso # (Auto) 0.1 Abs Immat Gran (auto) 0.05 H Absolute Neuts (auto) 6.3 Absolute Nucleated RBC 0.000 Nucleated RBC % (auto) 0.0 Sodium Cancelled Potassium Cancelled Chloride Cancelled Carbon Dioxide Cancelled Anion Gap Cancelled BUN Cancelled Creatinine Cancelled Estim Creat Clear Calc Cancelled Estimated GFR Cancelled Random Glucose Cancelled Lactic Acid Calcium Cancelled Magnesium Cancelled Total Bilirubin Cancelled AST Cancelled ALT Cancelled Alkaline Phosphatase Cancelled Total Protein Cancelled Albumin Cancelled Beta HCG, Quant Influenza Type A (PCR) NEGATIVE Influenza Type B (PCR) NEGATIVE RSV RNA Qual (PCR) POSITIVE A SARS-CoV-2 RNA (RT-PCR) NEGATIVE 07/09/22 07/09/22 07/10/22 15:43 15:43 07:32 WBC 6.9 RBC 4.47 Hgb 13.9 Hct 40.9 MCV 91.5 MCH 31.1 MCHC 34.0 RDW 11.9 Plt Count 292 MPV 9.3 L Immature Gran % (Auto) 0.4 Neut % (Auto) 77.4 H Lymph % (Auto) 14.4 L [place] % (Auto) 7.4 Eos % (Auto) 0.1 Baso % (Auto) 0.3 Lymph # (Auto) 1.0 L [place] # (Auto) 0.5 Eos # (Auto) 0.0 Baso # (Auto) 0.0 Abs Immat Gran (auto) 0.03 Absolute Neuts (auto) 5.4 Absolute Nucleated RBC 0.000 Nucleated RBC % (auto) 0.0 Sodium 136 Potassium 4.2 Chloride 100 Carbon Dioxide 19 L Anion Gap 21 H BUN 11 Creatinine 0.80 Estim Creat Clear Calc 107.4 Estimated GFR > 60 Random Glucose 96 Lactic Acid 1.9 Calcium 9.7 D Magnesium 2.1 Total Bilirubin 0.9 AST 23 D ALT 16 Alkaline Phosphatase 72 D Total Protein 8.6 H D Albumin 5.0 Beta HCG, Quant < 2 Influenza Type A (PCR) Influenza Type B (PCR) RSV RNA Qual (PCR) SARS-CoV-2 RNA (RT-PCR) 07/10/22 07:32 WBC RBC Hgb Hct MCV MCH MCHC RDW Plt Count MPV Immature Gran % (Auto) Neut % (Auto) Lymph % (Auto) [place] % (Auto) Eos % (Auto) Baso % (Auto) Lymph # (Auto) [place] # (Auto) Eos # (Auto) Baso # (Auto) Abs Immat Gran (auto) Absolute Neuts (auto) Absolute Nucleated RBC Nucleated RBC % (auto) Sodium 139 Potassium 4.3 Chloride 104 Carbon Dioxide 20 L Anion Gap 19 BUN 9 Creatinine 0.72 Estim Creat Clear Calc 119.4 Estimated GFR > 60 Random Glucose 130 H Lactic Acid Calcium 9.1 D Magnesium Total Bilirubin AST ALT Alkaline Phosphatase Total Protein Albumin Beta HCG, Quant Influenza Type A (PCR) Influenza Type B (PCR) RSV RNA Qual (PCR) SARS-CoV-2 RNA (RT-PCR) Discharge Plan Discharge Anticipated Discharge Date/Time: 07/10/22 13:03 Patient Disposition: Home, Self-Care Discharge Diagnosis: Ashtma exacerbation d/t RSV bronchitis Referrals: Maria C Dobbins MD [Physician] - 1 Week Kali Garza PA-C [Primary Care Provider] - 1 Week Discharge Medications: New prednisone 20 mg tablet 40 mg PO DAILY Qty: 6 0RF benzonatate 100 mg capsule 100 mg PO TID PRN (Reason: cough) Qty: 21 0RF Continued dextroamphetamine-amphetamine 10 mg capsule,extended release 24hr 1 cap PO DAILY Discharge Orders: Discharge Order (Routine); Ordered 07/10/22 Ordered By: Devaughn Jernigan Diet: Advance to usual diet Activity on Discharge: No Running or jogging Stand Alone Forms: Patient Portal Discharge page, Work/School Release Care Plan Goals: Full recovery from asthma exacerbation and RSV Health Concerns: Asthma exacerbation RSV Plan of Treatment: Use inhalers as directed Take Prednisone as recommended Take cough medication as needed rest and follow up with Pulmonology office here at [facility] in 2 weeks encourage using mask in public four several more days escpecially coughing alot Assessment: as above
--- NOTE | 2022-07-10 13:20 | MHC.CM.PN ---
Patient has been medically cleared for dc to home today, self care.
--- NOTE | 2022-07-10 17:04 | PM.CNPUL ---
History of Present Illness History of Present Illness Consult date: 07/10/22 Chief complaint: Dyspnea Narrative: I HAVE SEEN THIS 26 YEARS OLD FEMALE PATIENT FOR PULMONARY CONSULTATION. She had presented to the emergency room yesterday of with increased dyspnea and wheezing . It started after she had symptoms of upper respiratory infection a few days ago. Initially she did have little fever and chills. Then she developed cough with some wheezing. [place] we can entire. On her presentation to the emergency room her O2 sats were noted to be low and she required oxygen supplementation with nasal cannula. She has been treated with IV solid, and bronchodilator and today she is starting to feel better. I was us to see her before her discharge, so that she can have ongoing pulmonary follow-up as outpatient. Patient is nonsmoker. Does not smoke marijuana. She does have history of bronchial asthma which she remained mostly under control. She does have history of ADHD syndrome which is also controlled with med. Her Viral panel is positive for RSV infection. Review of Systems Review of Systems: Yes all other systems are reviewed and are negative Eyes: Eyes: Reports no additional eye complaints ENT: Reports system reviewed and no additional complaints, except as documented Cardiovascular: Cardiovascular: Reports no additional cardiovascular complaints Respiratory: Respiratory: Reports as per HPI Gastrointestinal: Gastrointestinal: Reports no additional gastrointestinal complaints Genitourinary: Genitourinary: Reports other (History of abnormal Pap smears) Musculoskeletal: Musculoskeletal: Reports no additional musculoskeletal complaints Integumentary/Breasts: Skin/Breast: Reports system reviewed and no additional complaints, except as docu Neurologic: Reports system reviewed and no additional complaints, except as documented Psychiatric: Psychiatric: Reports anxiety and Reports other (ADHD syndrome controlled) [facility] Past Medical History Medical History (Updated 07/09/22 @ 19:30 by Yolanda Garrison MD) Anxiety Asthma Herpes simplex type 1 infection Insomnia Mixed hyperlipidemia Vitamin D deficiency Family History Family History Father No problems noted. 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[employer] Gender identity: Female Cognitive needs: No Hearing needs: No Vision needs: No Meds Allergies Allergy/AdvReac Type Severity Reaction Status Date / Time No Known Allergies Allergy Verified 05/01/22 08:59 Home Medications Medication Instructions Recorded Confirmed Last Taken Type dextroamphetamine-amphetamine ER 1 cap PO DAILY 07/09/22 07/09/22 Unknown History 10 mg 24hr capsule,extend release Physical Exam Vital Signs: Vital Signs: Last Vital Signs Temp 97.8 F 07/10/22 06:41 Pulse 71 07/10/22 12:26 Resp 18 07/10/22 12:26 BP 129/79 07/10/22 06:41 Pulse Ox 94 07/10/22 08:00 O2 Del Method 07/10/22 06:41 O2 Flow Rate 2 07/10/22 06:41 BMI result Body Mass Index 22.8 Const: General: comfortable, no acute distress, alert and awake Orientation/consciousness: patient oriented x3 HEENT: Head: Yes normal to inspection General nose exam: No nasal polyps present and No nasal discharge present Face and sinus: Yes sinuses nontender Mouth: oropharynx normal Throat: Yes posterior oropharynx normal Eyes: General: appearance normal, both eyes and all related structures Neck: Neck: Yes normal visual inspection, Yes no lymphadenopathy, Yes trachea midline and Yes no JVD Thyroid: Thyroid normal Chest: Chest palpation & inspection: normal inspection of the chest, normal palpation of entire chest wall and no tenderness Resp: Other: Percussion note resonant, she has equal breath sounds on both sides,. The breath sounds are somewhat harsh . Inspiratory wheezes and fine Creps heard over both lower lobes. Cardio: Palpation: normal PMI Rate: regular rate Rhythm: regular rhythm Heart sounds: no gallops and no murmurs Peripheral pulses: Peripheral pulses 2+ throughout GI: Palpation (GI): Soft to palpation, nontender, No hepatosplenomegaly present and no masses Auscultation: normal bowel sounds Back/Spine/Pelvis: Thoracic/Lumbar Spine: thoracic and lumbar spine normal to inspection Skin: General skin exam: no rashes or lesions noted Neuro: General: patient oriented x3 and no focal motor deficits Cranial nerves: Yes CN's II-XII intact bilaterally Extrem: General: Yes normal to inspection, Yes no clubbing, cyanosis or edema and Yes no calf tenderness Psych: Appearance: grossly normal and well kempt Speech and movement: Normal speech and movement present Results Laboratory Findings CBC and BMP: 07/10/22 07:32 07/10/22 07:32 Abnormal lab findings: Abnormal Labs 07/09/22 07/09/22 07/09/22 14:55 15:43 15:43 MPV 9.0 L Immature Gran % (Auto) 0.5 H Neut % (Auto) Lymph % (Auto) [place] % (Auto) 11.3 H Lymph # (Auto) Abs Immat Gran (auto) 0.05 H Carbon Dioxide 19 L Anion Gap 21 H Random Glucose Total Protein 8.6 H D RSV RNA Qual (PCR) POSITIVE A 07/10/22 07/10/22 07:32 07:32 MPV 9.3 L Immature Gran % (Auto) Neut % (Auto) 77.4 H Lymph % (Auto) 14.4 L [place] % (Auto) Lymph # (Auto) 1.0 L Abs Immat Gran (auto) Carbon Dioxide 20 L Anion Gap Random Glucose 130 H Total Protein RSV RNA Qual (PCR) Diagnostic Findings Chest x-ray: report reviewed and image reviewed Assessment and Plan (1) Asthma: Status: Acute (2) Respiratory syncytial virus (RSV): Status: Acute (3) Acute bronchitis due to respiratory syncytial virus: Status: Acute (4) Asthma exacerbation: Status: Acute Plan This 26 years old female, with history of bronchial asthma which was somewhat in active, Currently has an acute exacerbation brought on by a acute RSV bronchitis. She has improved on the current regimen, but on auscultation still has diffuse bronchitis. Oxygenation has improved. RECC . Prednisone 40 mg daily for 5 days, Albuterol HFA 2 puffs Q 4-6 hours p.r.n. Cough controlled and may use benzonatate 100 mg t.i.d. p.r.n.. Patient would need a short-term follow-up, and I will be glad to see her in the office next week. Thank you for asking me to see this patient. Procedures Date of Service Date of Service: 07/10/22
== END 2022-07-10 13:42 | disposition home or self-care (01) | DRG 145 ==
LOC: HO.ED 18:47 → HO.EDOVER 20:00
PROVIDERS: Physician Assistant Medical; Admitting Provider Student in an Organized Health Care Education/Training Program; Emergency Provider Emergency Medicine; PCP Physician Assistant; Visit Provider Internal Medicine
DX: J20.5 Acute bronchitis due to respiratory syncytial virus (principal); J96.01 Acute respiratory failure with hypoxia; J45.901 Unspecified asthma with (acute) exacerbation; E78.2 Mixed hyperlipidemia; F90.0 Attention-deficit hyperactivity disorder, predominantly inattentive type; F17.210 Nicotine dependence, cigarettes, uncomplicated; Z71.6 Tobacco abuse counseling; Z20.822 Contact with and (suspected) exposure to COVID-19; Z79.899 Other long term (current) drug therapy
CPT/HCPCS: 0241U; 36415; 71046; 80048; 80053; 83605; 83735; 84702; 85025; 87040; 93005; 94640; 99218; 99285; J0696; J2405; J2920; J2930; J3475

== ENCOUNTER → 2022-07-18 10:37 | Outpatient (BNVA) | payer OTHER, SELFPAY | PROVIDERS: PCP Physician Assistant; Visit Provider Internal Medicine | DX: J45.909 Unspecified asthma, uncomplicated (principal); Z09 Encounter for follow-up examination after completed treatment for conditions other than malignant neoplasm | CPT/HCPCS: 99212 ==

== ENCOUNTER 2022-08-01 13:43 | Outpatient (REF) | payer OTHER, SELFPAY ==
--- NOTE | 2022-08-01 13:59 | PFT_ITS ---
FLOWS: FEV1 91% of predicted at 3.30 L. FVC 92% of predicted at 3.98 L. FEV1 to FVC ratio of 0.83. Positive bronchodilator response. LUNG VOLUMES: Total lung capacity 109% of predicted at 6.21 L. Residual volume 121% of predicted at 1.86 L. Slow vital capacity 105% of predicted at 4.35 L. Expiratory reserve volume 27% of predicted at 0.44 L. Diffusion capacity is normal. IMPRESSION: No obstructive or restrictive ventilatory defect. Positive bronchodilator response. Increased residual volume suggests air trapping. This test results suggest underlying asthma. Clinical correlation is advised. MD CATHERINE Anderson/MODL / [id number]
[2022-08-01 15:05] LABS: MANUAL DIFF FLAG NO
[2022-08-01 15:08] LABS: Basophils Absolute Auto 0.1 X10*3/uL (0.0-0.2); Basophils Percent Auto 1.1 % (0-2); Eosinophils Absolute Auto 0.9 X10*3/uL (0.0-0.4); Eosinophils Percent Auto 11.1 % (0-4); Hematocrit 43.9 % (37.0-47.0); Hemoglobin 14.4 g/dl (12.0-16.0); Imm Gran Abs Auto 0.06 X10*3/uL (0.00-0.03); Imm Gran Pct Auto 0.7 % (0.0-0.4); Lymphocytes Absolute Auto 2.3 X10*3/uL (1.2-4.9); Lymphocytes Percent Auto 28.6 % (20-40); Mean Corpuscular HGB Conc 32.8 g/dl (31.0-35.0); Mean Corpuscular Hemoglobin 30.3 pg (27.0-33.0); Mean Corpuscular Volume 92.2 fL (80.0-98.0); Mean Platelet Volume 8.8 fL (9.4-12.3); Monocytes Absolute Auto 0.5 X10*3/uL (0.1-1.2); Monocytes Percent Auto 5.9 % (2-11); Neutrophils Absolute Auto 4.3 x10*3/uL (2.0-8.3); Neutrophils Percent Auto 52.6 % (45-73); Platelet Count 323 X10*3/uL (160-400); Red Blood Count 4.76 X10*6/uL (4.20-5.50); Red Cell Distribution Width 12.2 % (11.0-16.0); White Blood Count 8.1 X10*3/uL (4.8-10.8)
[2022-08-03 07:48] LABS: Immunoglobulin E 29 kU/L (<OR=114)
== END 2022-08-01 13:44 | disposition home or self-care (01) ==
LOC: HO.RESP 13:43
PROVIDERS: PCP Physician Assistant; Visit Provider Internal Medicine
DX: J45.909 Unspecified asthma, uncomplicated (principal); R06.00 Dyspnea, unspecified
CPT/HCPCS: 36415; 82785; 85025; 94060; 94727; 94729

== ENCOUNTER → 2022-09-11 12:29 | Outpatient (BNVA) | payer OTHER, SELFPAY | PROVIDERS: PCP Physician Assistant; Visit Provider Obstetrics & Gynecology | DX: N87.1 Moderate cervical dysplasia (principal) | CPT/HCPCS: 99212 ==

== ENCOUNTER 2022-09-14 11:29 | Day surgery (SDC) | payer OTHER, SELFPAY ==
--- NOTE | 2022-09-13 10:10 | HO.ANESPROP2 ---
Documented by User: Ela Tariq NP 09/13/22 10:11 HPI - Anesthesia Eval Consult details Narrative: 27yo F for LEEP possible cone with cone ECC PMFSH Active Problems Active Problems: All Active Problems (Updated 08/05/22 @ 13:49 by Kali Garza PA-C) ADHD (attention deficit hyperactivity disorder) (Acute) Allergic rhinitis (Acute) Asthma (Acute) Respiratory syncytial virus (RSV) (Acute) LAUREN II (cervical intraepithelial neoplasia II) (Acute) LGSIL on Pap smear of cervix (Acute) Annual physical exam (Acute) Screening-pulmonary TB (Acute) Need for MMRV (pwystqw-njpyu-zwwomsy-varicella) vaccine (Acute) Need for hepatitis B screening test (Acute) Bacterial vaginosis (Acute) Herpes genitalis (Acute) control counseling (Acute) Well woman exam with routine gynecological exam (Acute) History of abnormal cervical Pap smear (Acute) Routine screening for STI (sexually transmitted infection) (Acute) HLD (hyperlipidemia) (Acute) REMBERTO (generalized anxiety disorder) (Acute) Past Medical History Medical History ADHD (attention deficit hyperactivity disorder) Allergic rhinitis Anxiety Asthma Herpes simplex type 1 infection Insomnia Mixed hyperlipidemia Vitamin D deficiency Family History Family History Father No problems noted. Mother Alcohol abuse Hypertension Paternal Grandmother CVD (cardiovascular disease) Stroke Paternal Grandfather Colon cancer Surgical History Surgical History Hx of wisdom tooth extraction Social History Social History Housing: Condominium Alcohol intake: current Alcohol intake frequency: holidays/special occasions only Patient Tobacco Use Status: Never used Tobacco e-Cigarette/Vaping Use: Never Used Use of substances other than those prescribed or required for medical reasons: Yes Substance Use Type: Marijuana Substance Use Frequency: Occasionally Are you DNR?: No Advance Directives: No Advance Directives Information Provided: Yes service: No Current occupational status: employed 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[employer] Gender identity: Female Cognitive needs: No Hearing needs: No Vision needs: No Meds Allergies Allergy/AdvReac Type Severity Reaction Status Date / Time No Known Allergies Allergy Verified 09/14/22 11:51 Home Medications Medication Instructions Recorded Confirmed Last Taken Type albuterol sulfate 90 mcg/actuation 2 puff inhalation Q6H PRN 07/18/22 09/14/22 Unknown History aerosol inhaler Shortness Of Breath Or Wheezing Exam Exam Date and Time: September 13, 2022 1010 Pertinent Lab Results Pertinent Lab Results: Laboratory Tests 07/10/22 08/01/22 07:32 15:02 WBC 8.1 Hgb 14.4 Hct 43.9 Plt Count 323 Sodium 139 Potassium 4.3 Chloride 104 Carbon Dioxide 20 L BUN 9 Creatinine 0.72 Assessment and Plan Assessment Anesthesia Assessment: Chart Reviewed Documented by User: Martine Ballesteros MD 09/14/22 12:44 PMFSH Past Medical History Medical History ADHD (attention deficit hyperactivity disorder) Allergic rhinitis Anxiety Asthma Herpes simplex type 1 infection Insomnia Mixed hyperlipidemia Vitamin D deficiency Family History Family History Father No problems noted. Mother Alcohol abuse Hypertension Paternal Grandmother CVD (cardiovascular disease) Stroke Paternal Grandfather Colon cancer Surgical History Surgical History Hx of wisdom tooth extraction History of Problems with Anesthesia: No Social History Social History Housing: Condominium Alcohol intake: current Alcohol intake frequency: holidays/special occasions only Patient Tobacco Use Status: Never used Tobacco e-Cigarette/Vaping Use: Never Used Use of substances other than those prescribed or required for medical reasons: Yes Substance Use Type: Marijuana Substance Use Frequency: Occasionally Are you DNR?: No Advance Directives: No Advance Directives Information Provided: Yes service: No 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 occupational status: employed 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[employer] Gender identity: Female Cognitive needs: No Hearing needs: No Vision needs: No Meds Allergies Allergy/AdvReac Type Severity Reaction Status Date / Time No Known Allergies Allergy Verified 09/14/22 11:51 Home Medications Medication Instructions Recorded Confirmed Last Taken Type albuterol sulfate 90 mcg/actuation 2 puff inhalation Q6H PRN 07/18/22 09/14/22 Unknown History aerosol inhaler Shortness Of Breath Or Wheezing Exam Airway Mallampati Class: I TM Dist: >3cm Neck ROM: Full Loose/Missing/Broken Teeth: No Heart: RRR Lungs: CTA Assessment and Plan Assessment Anesthesia Assessment: Anesthesia Plan Discussed Final Anesthetic Review History of Problems with Anesthesia: No NPO: Yes ASA Class: II Final Preanesthetic Review: Meds/Allgs Chart Reviewed, Consent Obtained/Reviewed and Anes Risks/Benef Reviewed Patient Risk: Low Procedure Risk: Low Anesthetic Plan Anesthetic Plan: GA Disposition: Standard PACU
[2022-09-14 11:52] VITALS: BMI 23.6
[2022-09-14 12:07] LABS: UPreg QC Valid YES; Urine Pregnancy NEGATIVE (NEGATIVE)
[2022-09-14 12:08] VITALS: BP 133/86; PULSE 83; RESP 15; TEMP 36.3; O2SAT 99
[2022-09-14] MEDS: Lactated Ringers 1,000 ML 100 ML IVCONT (12:12)
--- NOTE | 2022-09-14 14:00 | MHC.SHP ---
Pre-Procedural Eval Section A Date of Service: 09/14/22 The patient is an INPATIENT: No Changes since office visit: No Cold of Flu in the past 2 weeks, No New Medical Problems, No Changes in Medication and No Patient answered all questions The History & Physical has been completed within 30 days and I have reviewed it.: Yes Section B Chief Complaint: Moderate cervical dysplasia Allergies: Allergies Allergy/AdvReac Type Severity Reaction Status Date / Time No Known Allergies Allergy Verified 09/14/22 11:51 Plan Diagnosis/Plan: Unchanged I have reviewed the history and physical and performed a pertinent physical examination on my patient. No changes have occurred unless specified. Time Spent With Patient Time: Total time managing care of this patient today ____ minutes.
--- NOTE | 2022-09-14 14:00 | PM.OP ---
Brief Operative Note Date of Service: 09/14/22 Pre-op diagnosis: LAUREN 2 Post-op diagnosis: same Procedure: LEEP CONE, top-hat excision with post CONE ECC Surgeon: Martin Abdi MD Anesthesia: GLMA and other (Paracervical block) Was an Business Services Sales Representative used for this Procedure?: No Estimated blood loss (mL): 100 Pathology: other (Cervical cone, top-hat, Post cone ECC) Condition: stable Disposition: other (Home)
--- NOTE | 2022-09-14 14:01 | P.OP_ITS ---
Operative Note Operative Note Date of Service: 09/14/22 Narrative: Pre op diagnosis: LAUREN 2 Operation: Colposcopy, Loop electrical excision procedure cone, top hat endocervical excision, post cone ECC Postop diagnosis: the same Quantitative blood loss: 100 cc Surgeon: Martin Abdi MD, FACOG Welding Machine Operator Friction: None Pathology: Cervical cone, top-hat endo cervical excision, endo cervical curettage Complications: none Anesthesia: MAC and Para cervical block Procedure: The patient was put in a dorsal lithotomy position, scrubbed and draped in the usual sterile fashion. A speculum was inserted inside the patient's vagina. The cervix is assessed using the colposcope with acetic acid , the lesions were seen, and at least 1 cm of the squamocolumnar junction was observed. 20 x 5 mm size loop was selected based upon the diameter of the lesion. Lugol solution was used to outline the lesions and area of the transformation zone order to be removed 10 cc of xylocaine with epinephrine were injected submucosally into the surface of the cervix (ectocervix) at the 3, 6, 9, and 12 o'clock positions. The electrosurgical generator is set at 40 prasad on blend 1. The loop is carefully passed simultaneously around and under the transformation zone, in order to ensure excising it making sure the lesion is at least 5 mm far from the specimen margins . The loop was allowed to glide through the cervix from one side to the other, allowing the cutting current to divide the tissue. Additional tissue was excised from this area with a smaller-diameter loop , endo cervical top-hat excision was performed An endo cervical curettage is performed following completion of excision, and hemostasis is obtained with a Ball electrode or regular tip cautery with 2 [id number] stitches at the posterior cervical lip using 2. 0. Vicryl. At the end, Monsel's solution was applied to the cone bed. The patient tolerated the procedure well and, all instruments were taken out of the patient vaginal cavity, and the patient was transferred to the PACU in stable condition.
[2022-09-14 14:08] VITALS: BP 146/89; PULSE 93; RESP 16; TEMP 36.1; O2SAT 100
[2022-09-14 14:13] VITALS: BP 122/67; PULSE 100; RESP 18; O2SAT 97
[2022-09-14 14:18] VITALS: BP 126/83; PULSE 90; RESP 16; O2SAT 97
[2022-09-14] MEDS: oxyCODONE HCl Immed Release 5 MG TABLET PO (14:19)
[2022-09-14] MEDS: Acetaminophen 325 MG TABLET 650 MG PO (14:20)
[2022-09-14] MEDS: ondansetron HCL 4 MG/2 ML VIAL IVPUSH (14:20)
[2022-09-14 14:23] VITALS: BP 141/80; PULSE 91; RESP 18; O2SAT 97
[2022-09-14 14:38] VITALS: BP 136/70; PULSE 86; RESP 18; TEMP 36.8; O2SAT 100
== END 2022-09-14 14:56 | disposition home or self-care (01) ==
PROVIDERS: Nurse Practitioner; PCP Physician Assistant; Visit Provider Obstetrics & Gynecology
PROC: 0UBC7ZZ Excision of Cervix, Via Natural or Artificial Opening (ICD-10-PCS; CPT 57522; principal; 2022-09-14 15:10)
DX: D06.7 Carcinoma in situ of other parts of cervix (principal); F90.9 Attention-deficit hyperactivity disorder, unspecified type; F41.9 Anxiety disorder, unspecified; E78.5 Hyperlipidemia, unspecified; J45.909 Unspecified asthma, uncomplicated; E55.9 Vitamin D deficiency, unspecified; B00.9 Herpesviral infection, unspecified; F12.90 Cannabis use, unspecified, uncomplicated; Z79.899 Other long term (current) drug therapy
CPT/HCPCS: 57461; 81025; 88305; 88307; J1100; J2250; J2405; J3010

== ENCOUNTER 2022-09-24 14:01 | Outpatient (REF) | payer OTHER, SELFPAY ==
[2022-09-24 14:12] LABS: Hematocrit 39.9 % (37.0-47.0); Hemoglobin 13.2 g/dl (12.0-16.0); Mean Corpuscular HGB Conc 33.1 g/dl (31.0-35.0); Mean Corpuscular Hemoglobin 30.6 pg (27.0-33.0); Mean Corpuscular Volume 92.4 fL (80.0-98.0); Mean Platelet Volume 8.8 fL (9.4-12.3); Platelet Count 366 X10*3/uL (160-400); Red Blood Count 4.32 X10*6/uL (4.20-5.50); Red Cell Distribution Width 12.1 % (11.0-16.0)
== END 2022-09-24 14:02 | disposition home or self-care (01) ==
LOC: HO.LAB 14:01
PROVIDERS: PCP Physician Assistant; Visit Provider Obstetrics & Gynecology
DX: D06.9 Carcinoma in situ of cervix, unspecified (principal); N76.0 Acute vaginitis; B96.89 Other specified bacterial agents as the cause of diseases classified elsewhere; N93.9 Abnormal uterine and vaginal bleeding, unspecified
CPT/HCPCS: 36415; 85027; 99212

== ENCOUNTER 2023-02-20 14:18 | Outpatient (REF) | payer OTHER, SELFPAY ==
[2023-02-20 15:32] LABS: Hematocrit 43.6 % (37.0-47.0); Hemoglobin 14.3 g/dl (12.0-16.0); Mean Corpuscular HGB Conc 32.8 g/dl (31.0-35.0); Mean Corpuscular Hemoglobin 30.2 pg (27.0-33.0); Mean Platelet Volume 9.6 fL (9.4-12.3); Platelet Count 375 X10*3/uL (160-400); Red Blood Count 4.74 X10*6/uL (4.20-5.50); Red Cell Distribution Width 12.3 % (11.0-16.0); White Blood Count 7.5 X10*3/uL (4.8-10.8)
[2023-02-20 16:38] LABS: TSH reflex Free T4 1.37 uIU/mL (0.32-4.0)
[2023-02-22 05:49] LABS: HBS Num1 25.21 mIU/mL (0-7.99); ~Hepatitis B Surface Antibody REACTIVE (Nonreactive)
[2023-02-23 01:53] LABS: TS Negative Control Passed; TS Panel A 1; TS Panel B 0; TS Positive Control Passed; TSpotTB Negative (Negative)
== END 2023-02-20 14:19 | disposition home or self-care (01) ==
LOC: HO.LAB 14:18
PROVIDERS: PCP Physician Assistant; Visit Provider Physician Assistant
DX: Z01.84 Encounter for antibody response examination (principal); E78.2 Mixed hyperlipidemia; Z11.59 Encounter for screening for other viral diseases; Z11.1 Encounter for screening for respiratory tuberculosis
CPT/HCPCS: 36415; 84443; 85027; 86481; 86706

== ENCOUNTER 2023-08-12 14:37 | Outpatient (AMB) | payer OTHER, SELFPAY ==
--- NOTE | 2023-08-12 14:43 | MHC.PC.OV ---
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: No Accompanied by: Self / Same As Patient Allergies No Known Allergies Allergy (Verified 08/12/23 15:22) Medication List - Last Reconciled 08/12/23 by Kali Garza PA-C albuterol sulfate 90 mcg/actuation 2 puffs inhalation Q6H PRN lisdexamfetamine (Vyvanse) 20 mg PO DAILY 28 days Tobacco use date assessed: 08/12/23 Dental Screening Dental Screen Date: 08/12/23 Did you have a dental visit in the last 12 months?: Yes Did you have a dental problem in the last 6 months where you did not have access to dental care?: No Was dental information given to patient?: Patient has dentist HPI med review HPI Details Patient is a 28 year female here today for follow-up visit. Patient has a past medical history significant for asthma, ADHD, hyperlipidemia, LAUREN-3, generalized anxiety disorder. . 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 She has transition from Adderall to Vyvanse which has been okay though she does not feel Vyvanse is as effective or long-lasting. She does notice her grades are slipping and she has some lack of focus as compared to previous. Will increase her dose of Vyvanse. .. Generalized anxiety disorder: She does generally suffer from anxiety though has been high in the as of late. She attributes this to being more stressed as she is in school. She has not been able to handle her anxiety 1 like to try a p.r.n. medication. .. Asthma: She did have an asthma exacerbation due to having RSV infection 1 year ago which led to a hospitalization. She is now on an inhaler and has been fine with asthma with p.r.n. use of albuterol inhaler. [facility] Medical History Allergic rhinitis Asthma Vitamin D deficiency Mixed hyperlipidemia Insomnia Herpes simplex type 1 infection Anxiety ADHD (attention deficit hyperactivity disorder) Surgical History Hx of wisdom tooth extraction Family History Father No problems noted. 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 1. Little interest or pleasure in doing things: not at all 2. Feeling down, depressed, or hopeless: not at all 3. Trouble falling or staying asleep, or sleeping too much: not at all 4. Feeling tired or having little energy: not at all 5. Poor appetite or overeating: not at all 6. Feeling bad about yourself - or that you are a failure or have let yourself or your family down: not at all 7. Trouble concentrating on things, such as reading the newspaper or watching television: not at all 8. Moving or speaking so slowly that other people could have noticed. Or the opposite - being so fidgety or restless that you have been moving around a lot more than usual: not at all 9. Thoughts that you would be better off or of hurting yourself in some way: not at all Total score: 0 Depression Screening Interpretation: Negative Depression Screening Done: Yes 27405 - PHQ-9 Billing: Yes Source: Developed by Drs. Maxx Abebe, Jane Driver, Rangel Goodman and colleagues, with an educational den from [employer]. Thrive Questionnaire Date Thrive assessed: 08/12/23 I am a: Patient What is your living situation today?: I have a steady place to live Within the past 12 months, did the food you bought not last and you didn't have the money to get more?: Never true Within the past 12 months, did you worry whether your food would run out before you got money to buy more?: Never true Do you have trouble paying for medicines?: No Do you have trouble getting transportation to medical appointments?: No Do you have trouble paying your heating and electricity bill?: No Do you have trouble taking care of your child, family member or friend?: No Do you have trouble with day-to-day activities such as bathing, preparing meals, shopping, managing finances, etc.?: No Are you currently unemployed and looking for a job?: No Are you interested in more education?: No Currently or been in a relationship where the following occur: no concerns reported AUDIT C Alcohol Use Questionnaire (AUDIT-C) 1. How often do you have a drink containing alcohol?: Never 3. How often do you have six or more drinks on one occasion?: Never Total Score: 0 REMBERTO-7 AMB Questionnaire REMBERTO-7 Date REMBERTO - 7 assessed: 08/12/23 Feeling nervous, anxious, or on edge: 0 = Not at all Not being able to stop or control worryin = Not at all Worrying too much about different things: 0 = Not at all Trouble relaxin = Not at all Being so restless that it is hard to sit still: 0 = Not at all Becoming easily annoyed or irritable: 0 = Not at all Feeling afraid as if something awful might happen: 0 = Not at all Total REMBERTO-7 score (0-4 normal; 5-9 mild; 10-14 moderate; 15-21 severe): 0 Source: Developed by Drs. Maxx Abebe, Jane Driver, Rangel Goodman and colleagues, with an educational den from [employer]. REMBERTO-7 Assessment Billing REMBERTO-7 Assessment Tool: REMBERTO-7 Assessment 03172 ACT Questionnaire In the past 4 weeks, how much of the time did your asthma keep you from getting as much done at work, school or at home?: None of the time During the past 4 weeks, how often have you had shortness of breath?: 1-2 times a week During the past 4 weeks, how often did your asthma symptoms wake you up at night or earlier than usual in the morning?: Not at all During the past 4 weeks, how often have you had to use your rescue inhaler or nebulizer medication?: Not at all How would you rate your asthma control during the past 4 weeks?: Completely controlled ACT Interpretation: Negative Score: 24 Review of Systems Const Denies headache(s) Eyes Denies loss of vision ENT Denies vertigo, Denies dizziness, Denies headache(s) and Denies sore throat Card Denies chest pain, Denies leg edema and Denies lightheadedness Resp Denies cough, Denies hemoptysis and Denies wheezing GI Denies abdominal pain, Denies melena, Denies constipation, Denies diarrhea and Denies vomiting Denies urinary frequency, Denies dysuria and Denies urinary urgency Musc Denies arthralgias, Denies joint swelling, Denies numbness and Denies tingling Neuro Denies Abnormal speech present, Denies behavioral changes, Denies vertigo, Denies dizziness, Denies headache(s), Denies loss of vision, Denies memory loss, Denies numbness and Denies tingling Psych Denies anxiety, Denies behavioral changes, Denies depression, Denies memory loss and Denies panic attacks Rm/Lymph Denies easy bleeding and Denies easy bruising Aller/Immun Denies wheezing Physical exam (Primary Care) Vital Signs: Last Vital Signs Pulse 66 08/12/23 14:51 BP 124/86 08/12/23 14:51 Pulse Ox 96 08/12/23 14:51 Oxygen Delivery Method Room Air 08/12/23 14:51 BMI result Body Mass Index 26.3 Tobacco/Smoking Status: Tobacco use Status Tobacco use date assessed 08/12/23 08/12/23 15:07 Patient Tobacco Use Status Never used Tobacco 08/12/23 14:46 e-Cigarette/Vaping Use Never Used 08/12/23 14:46 PHQ-9: PHQ-9 Score PHQ-9: Total score 0 08/12/23 15:25 Depression Screening Interpretation: Negative Thrive Assessment: Date of Thrive Assessment Date Thrive assessed 08/12/23 08/12/23 14:46 Currently or been in a relationship where the following occur: no concerns reported Const General: healthy appearing, no acute distress, alert and awake Nutritional Appearance: well nourished Orientation/consciousness: oriented to person, oriented to place and oriented to time HENMT Ears: TM's normal bilaterally General nose exam: Normal nasal mucous membranes and turbinates present Eyes Conjunctivae: conjunctivae normal Sclerae: sclerae normal Pupils: Equal, round and reactive pupils present Neck Neck: Yes no lymphadenopathy and Yes no JVD Thyroid: Thyroid normal Carotids: no bruits Resp Effort & Inspection: normal respiratory effort and not tachypneic Auscultation: no crackles, no rales, no rhonchi and no wheezes Cardio Rate: regular rate Rhythm: regular rhythm Heart sounds: no murmurs and normal S1 and S2 GI Palpation (GI): Soft to palpation, nontender, no hepatomegaly and no splenomegaly Auscultation: normal bowel sounds Skin General skin exam: no rashes or lesions noted and dry skin Neuro General: oriented to person, oriented to place and oriented to time Cranial nerves: Yes Equal, round and reactive pupils present Speech: No Abnormal speech present Gait exam (Neuro): Normal gait present Motor exam (neuro): no tremor noted Extrem Right upper extremity: full ROM Left upper extremity: full ROM Right lower extremity: full ROM; no edema Left lower extremity: full ROM; no edema Psych Mental Status: mental status grossly normal Speech and movement: Normal speech and movement present Affect: normal affect Attitude: cooperative Thought process: Normal thought process present Assessment and Plan Assessment & Plan (1) HLD (hyperlipidemia): Code(s): E78.5 - Hyperlipidemia, unspecified Qualifiers: Hyperlipidemia type: mixed hyperlipidemia Qualified Code(s): E78.2 - Mixed hyperlipidemia Plan: Has a history elevated total cholesterol and LDL. In the past has worked on diet and lifestyle modifications. Unfortunately has gained significant weight since last office visit and has not been watching her diet. Will recheck fasting lipid panel . 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 Continues with Vyvanse which has been somewhat effective for her the only lasts 3-4 hours. She would like an increase dose to help her with her attention and focus. (3) REMBERTO (generalized anxiety disorder): Code(s): F41.1 - Generalized anxiety disorder Plan: As per HPI patient has been suffering with anxiety that has been heightened by her stress being in school. She would like to try an as-needed medication for her panic symptoms. (4) Asthma: Comment: HISTORY IS CONSISTENT WITH MILD INTERMITTENT BRONCHIAL ASTHMA. PLAN IS TO DO COMPLETE PULMONARY FUNCTION TEST. WILL CHECK CBC FOR EIOSINOPHILIA WILL ALSO CHECK IGE LEVEL. TX : PATIENT HAS BEEN WELL EDUCATED FOR MANAGEMENT OF ASTHMA USE ALBUTEROL HFA 2 PUFFS Q 4-6 HOURS ONLY P.R.N. AFTER THE PULMONARY FUNCTION TEST WILL DECIDE IF SHE NEEDS ADDITIONAL INHALERS. Code(s): J45.909 - Unspecified asthma, uncomplicated Qualifiers: Asthma severity: mild Asthma persistence: intermittent Asthma complication type: uncomplicated Qualified Code(s): J45.20 - Mild intermittent asthma, uncomplicated Plan: Patient reports her asthma has been fairly well controlled over last several months. Did have an asthma exacerbation recently due to RSV. She does use her albuterol inhaler on a p.r.n. basis. Now followed by hospital plan administrator. Orders: Orders Lipid Panel 08/12/23 E78.2 - Mixed hyperlipidemia Comprehensive [place]. Panel Fast 08/12/23 E78.2 - Mixed hyperlipidemia Complete Blood Count no Diff 08/12/23 E78.2 - Mixed hyperlipidemia TSH reflex Free T4 08/12/23 E78.2 - Mixed hyperlipidemia Medications: New lorazepam 0.5 mg PO DAILY 15 days PRN 7 tabs 0RF anxiety F41.1 - Generalized anxiety disorder lisdexamfetamine (Vyvanse) Partial Fill upon patient request. 40 mg PO DAILY 30 days 30 caps 0RF F90.0 - Attention-deficit hyperactivity disorder, predominantly inattentive type Discontinued lisdexamfetamine (Vyvanse) Partial Fill upon patient request. Discontinued Reason: Doctor's Order 20 mg PO DAILY 28 days 28 caps 0RF F90.0 - Attention-deficit hyperactivity disorder, predominantly inattentive type Coding Level of Care Code Est Pt Level 4 (43387) Diagnoses Mixed hyperlipidemia E78.2 Hyperlipidemia type: mixed hyperlipidemia Attention deficit hyperactivity disorder (ADHD), predominantly inattentive type F90.0 Attention deficit-hyperactivity disorder type: predominantly inattentive REMBERTO (generalized anxiety disorder) F41.1 Mild intermittent asthma without complication J45.20 Asthma severity: mild Asthma persistence: intermittent Asthma complication type: uncomplicated Additional Codes REMBERTO-7 Assessment Billing - REMBERTO-7 Assessment Tool: REMBERTO-7 Assessment 38006 ([id number])
[2023-08-12 14:51] VITALS: BP 124/86; PULSE 66; O2SAT 96; BMI 26.3
== END 2023-08-12 15:42 | disposition home or self-care (01) ==
PROVIDERS: PCP Physician Assistant; Visit Provider Physician Assistant
DX: E78.2 Mixed hyperlipidemia (principal); F90.0 Attention-deficit hyperactivity disorder, predominantly inattentive type; F41.1 Generalized anxiety disorder; J45.20 Mild intermittent asthma, uncomplicated
CPT/HCPCS: 99214

== ENCOUNTER 2023-11-18 08:48 | Outpatient (REF) | payer OTHER, SELFPAY ==
[2023-11-18 09:49] LABS: Hematocrit 41.4 % (37.0-47.0); Hemoglobin 13.6 g/dl (12.0-16.0); Mean Corpuscular HGB Conc 32.9 g/dl (31.0-35.0); Mean Corpuscular Hemoglobin 30.3 pg (27.0-33.0); Mean Corpuscular Volume 92.2 fL (80.0-98.0); Mean Platelet Volume 9.4 fL (9.4-12.3); Platelet Count 353 X10*3/uL (160-400); Red Blood Count 4.49 X10*6/uL (4.20-5.50); Red Cell Distribution Width 12.5 % (11.0-16.0); White Blood Count 6.6 X10*3/uL (4.8-10.8)
[2023-11-18 10:45] LABS: Alanine Aminotransferase 12 U/L (0-31); Albumin Level 4.2 g/dL (3.5-5.0); Alkaline Phosphatase 60 U/L (39-117); Anion Gap 13 (12-20); Aspartate Amino Transferase 14 U/L (5-31); Bilirubin Total 0.5 mg/dL (0.0-1.0); Blood Urea Nitrogen 8 mg/dL (9-16); Carbon Dioxide 26 mmol/L (22-29); Chloride 105 mmol/L (96-108); Cholesterol 228 mg/dL (<200); Estimated Glomerular Filt Rate > 60; Glucose Fasting 96 mg/dL (60-99); HDL Cholesterol 64 mg/dL (>40); LDL Cholesterol Calculated 146 mg/dL (<100); Potassium 4.3 mmol/L (3.3-5.1); Sodium 140 mmol/L (135-145); Triglycerides 92 mg/dL (<150)
[2023-11-18 11:04] LABS: TSH reflex Free T4 1.53 uIU/mL (0.32-4.0)
[2023-11-20 22:23] LABS: TS Negative Control Passed; TS Panel A 0; TS Panel B 0; TS Positive Control Passed; TSpotTB Negative (Negative)
== END 2023-11-18 08:49 | disposition home or self-care (01) ==
LOC: HO.LAB 08:48
PROVIDERS: PCP Physician Assistant; Visit Provider Physician Assistant
DX: Z11.1 Encounter for screening for respiratory tuberculosis (principal); E78.2 Mixed hyperlipidemia
CPT/HCPCS: 36415; 80053; 80061; 84443; 85027; 86481

== ENCOUNTER 2023-11-18 14:10 | Outpatient (AMB) | payer OTHER, SELFPAY ==
[2023-11-18 14:15] VITALS: BP 104/70; PULSE 78; O2SAT 99; BMI 24.5
--- NOTE | 2023-11-18 14:15 | MHC.PC.OV ---
Vital Signs 11/18/23 14:15 Height 5 ft 8 in Weight 161 lb 6 oz BMI 24.5 BP 104/70 Blood Pressure Location Lt brachial Position Sitting Pulse 78 Pulse Source Pulse Oximeter Pulse Oximetry (%) 99 Oxygen Delivery Method Room Air Intake Visit Reasons: f/u ADHD Intake Note: Pt is here for PE and ADHD medication F/U. Net Sorter Required: No Accompanied by: Self / Same As Patient Allergies No Known Allergies Allergy (Verified 11/18/23 14:37) Medication List - Last Reconciled 11/18/23 by Kali Garza PA-C albuterol sulfate 90 mcg/actuation 2 puffs inhalation Q6H PRN lisdexamfetamine (Vyvanse) 40 mg PO DAILY 30 days lorazepam 0.5 mg PO DAILY PRN 15 days Tobacco use date assessed: 08/12/23 Dental Screening Dental Screen Date: 11/18/23 Did you have a dental visit in the last 12 months?: Yes Did you have a dental problem in the last 6 months where you did not have access to dental care?: No Was dental information given to patient?: Patient has dentist HPI f/u ADHD HPI Details Patient is a 28 year female here today for follow-up visit. Patient has a past medical history significant for asthma, ADHD, hyperlipidemia, LAUREN-3, generalized anxiety disorder. . 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 She has transition from Adderall to Vyvanse which has been okay though she does not feel Vyvanse is as effective or long-lasting. She reports she is getting straight A's in nursing school and her current dose of Vyvanse 40 mg is very effective for her. .. Generalized anxiety disorder: Her anxiety has been fairly well controlled. Using lorazepam on a limited p.r.n. basis for panic which has been very effective for her. .. Hyperlipidemia: Most recent lipid panel showing improved total cholesterol and LDL. Cholesterol still remains borderline high. .. Asthma: Asthma has been well controlled with only p.r.n. use of her albuterol inhaler. Laboratory Tests 07/20/20 11/18/23 10:42 09:13 Cholesterol 254 228 H LDL Cholesterol, C alc 157 146 H PFSH Medical History Allergic rhinitis Asthma Vitamin D deficiency Mixed hyperlipidemia Insomnia Herpes simplex type 1 infection Anxiety ADHD (attention deficit hyperactivity disorder) Surgical History Hx of wisdom tooth extraction Family History Father No problems noted. 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 1. Little interest or pleasure in doing things: not at all 2. Feeling down, depressed, or hopeless: not at all 3. Trouble falling or staying asleep, or sleeping too much: not at all 4. Feeling tired or having little energy: not at all 5. Poor appetite or overeating: not at all 6. Feeling bad about yourself - or that you are a failure or have let yourself or your family down: not at all 7. Trouble concentrating on things, such as reading the newspaper or watching television: not at all 8. Moving or speaking so slowly that other people could have noticed. Or the opposite - being so fidgety or restless that you have been moving around a lot more than usual: not at all 9. Thoughts that you would be better off or of hurting yourself in some way: not at all Total score: 0 Depression Screening Interpretation: Negative Depression Screening Done: Yes 03130 - PHQ-9 Billing: Yes Source: Developed by Drs. Maxx Abebe, Jane Driver, Rangel Goodman and colleagues, with an educational den from [employer]. Thrive Questionnaire Date Thrive assessed: 11/18/23 I am a: Patient What is your living situation today?: I have a steady place to live Within the past 12 months, did the food you bought not last and you didn't have the money to get more?: Never true Within the past 12 months, did you worry whether your food would run out before you got money to buy more?: Never true Do you have trouble paying for medicines?: No Do you have trouble getting transportation to medical appointments?: No Do you have trouble paying your heating and electricity bill?: No Do you have trouble taking care of your child, family member or friend?: No Do you have trouble with day-to-day activities such as bathing, preparing meals, shopping, managing finances, etc.?: No Are you currently unemployed and looking for a job?: No Are you interested in more education?: No Please select the resources that you would like help with: None Currently or been in a relationship where the following occur: no concerns reported THRIVE Score: 0 AUDIT C Alcohol Use Questionnaire (AUDIT-C) 1. How often do you have a drink containing alcohol?: Monthly or less 2. How many drinks containing alcohol do you have on a typical day when you are drinking?: 1 or 2 3. How often do you have six or more drinks on one occasion?: Never Total Score: 1 REMBERTO-7 AMB Questionnaire REMBERTO-7 Date REMBERTO - 7 assessed: 11/18/23 Feeling nervous, anxious, or on edge: 1 = Several days Not being able to stop or control worryin = Not at all Worrying too much about different things: 1 = Several days Trouble relaxin = Several days Being so restless that it is hard to sit still: 1 = Several days Becoming easily annoyed or irritable: 0 = Not at all Feeling afraid as if something awful might happen: 0 = Not at all Total REMBERTO-7 score (0-4 normal; 5-9 mild; 10-14 moderate; 15-21 severe): 4 Source: Developed by Drs. Maxx Abebe, Jane Driver, Rangel Goodman and colleagues, with an educational den from [employer]. REMBERTO-7 Assessment Billing REMBERTO-7 Assessment Tool: REMBERTO-7 Assessment 59840 ACT Questionnaire In the past 4 weeks, how much of the time did your asthma keep you from getting as much done at work, school or at home?: None of the time During the past 4 weeks, how often have you had shortness of breath?: Not at all During the past 4 weeks, how often did your asthma symptoms wake you up at night or earlier than usual in the morning?: Not at all During the past 4 weeks, how often have you had to use your rescue inhaler or nebulizer medication?: Not at all How would you rate your asthma control during the past 4 weeks?: Completely controlled ACT Interpretation: Negative Score: 25 Review of Systems Const Denies headache(s) Eyes Denies loss of vision ENT Denies vertigo, Denies dizziness, Denies headache(s) and Denies sore throat Card Denies chest pain, Denies leg edema and Denies lightheadedness Resp Denies cough, Denies hemoptysis and Denies wheezing GI Denies abdominal pain, Denies melena, Denies constipation, Denies diarrhea and Denies vomiting Denies urinary frequency, Denies dysuria and Denies urinary urgency Musc Denies arthralgias, Denies joint swelling, Denies numbness and Denies tingling Neuro Denies Abnormal speech present, Denies behavioral changes, Denies vertigo, Denies dizziness, Denies headache(s), Denies loss of vision, Denies memory loss, Denies numbness and Denies tingling Psych Denies anxiety, Denies behavioral changes, Denies depression, Denies memory loss and Denies panic attacks Rm/Lymph Denies easy bleeding and Denies easy bruising Aller/Immun Denies wheezing Physical exam (Primary Care) Vital Signs: Last Vital Signs Pulse 78 11/18/23 14:15 BP 104/70 11/18/23 14:15 Pulse Ox 99 11/18/23 14:15 Oxygen Delivery Method Room Air 11/18/23 14:15 BMI result Body Mass Index 24.5 Tobacco/Smoking Status: Tobacco use Status Tobacco use date assessed 08/12/23 11/18/23 14:16 Patient Tobacco Use Status Never used Tobacco 11/18/23 14:16 e-Cigarette/Vaping Use Never Used 11/18/23 14:16 PHQ-9: PHQ-9 Score PHQ-9: Total score 0 11/18/23 14:32 Depression Screening Interpretation: Negative Thrive Assessment: Date of Thrive Assessment Date Thrive assessed 11/18/23 11/18/23 14:32 Currently or been in a relationship where the following occur: no concerns reported Const General: healthy appearing, no acute distress, alert and awake Nutritional Appearance: well nourished Orientation/consciousness: oriented to person, oriented to place and oriented to time HENMT Ears: TM's normal bilaterally General nose exam: Normal nasal mucous membranes and turbinates present Eyes Conjunctivae: conjunctivae normal Sclerae: sclerae normal Pupils: Equal, round and reactive pupils present Neck Neck: Yes no lymphadenopathy and Yes no JVD Thyroid: Thyroid normal Carotids: no bruits Resp Effort & Inspection: normal respiratory effort and not tachypneic Auscultation: no crackles, no rales, no rhonchi and no wheezes Cardio Rate: regular rate Rhythm: regular rhythm Heart sounds: no murmurs and normal S1 and S2 GI Palpation (GI): Soft to palpation, nontender, no hepatomegaly and no splenomegaly Auscultation: normal bowel sounds Skin General skin exam: no rashes or lesions noted and dry skin Neuro General: oriented to person, oriented to place and oriented to time Cranial nerves: Yes Equal, round and reactive pupils present Speech: No Abnormal speech present Gait exam (Neuro): Normal gait present Motor exam (neuro): no tremor noted Extrem Right upper extremity: full ROM Left upper extremity: full ROM Right lower extremity: full ROM; no edema Left lower extremity: full ROM; no edema Psych Mental Status: mental status grossly normal Speech and movement: Normal speech and movement present Affect: normal affect Attitude: cooperative Thought process: Normal thought process present Assessment and Plan Assessment & Plan (1) HLD (hyperlipidemia): Code(s): E78.5 - Hyperlipidemia, unspecified Qualifiers: Hyperlipidemia type: mixed hyperlipidemia Qualified Code(s): E78.2 - Mixed hyperlipidemia Plan: Has a history elevated total cholesterol and LDL. Most recent lipid panel showing improved total cholesterol and LDL. She has been working on lifestyle modification . 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 She is due to graduate in January of 2024. She continues on Vyvanse 40 mg which has been effective for her. She reports she is able to keep up with demanding course work. (3) REMBERTO (generalized anxiety disorder): Code(s): F41.1 - Generalized anxiety disorder Plan: Patient's REMBERTO-7 score positive for anxiety which has been existing condition for her.. Anxiety has been heightened since being in nursing school.. We have given her lorazepam 0.5 mg to use on a very limited p.r.n. basis which he has used very good effect. (4) Asthma: Comment: HISTORY IS CONSISTENT WITH MILD INTERMITTENT BRONCHIAL ASTHMA. PLAN IS TO DO COMPLETE PULMONARY FUNCTION TEST. WILL CHECK CBC FOR EIOSINOPHILIA WILL ALSO CHECK IGE LEVEL. TX : PATIENT HAS BEEN WELL EDUCATED FOR MANAGEMENT OF ASTHMA USE ALBUTEROL HFA 2 PUFFS Q 4-6 HOURS ONLY P.R.N. AFTER THE PULMONARY FUNCTION TEST WILL DECIDE IF SHE NEEDS ADDITIONAL INHALERS. Code(s): J45.909 - Unspecified asthma, uncomplicated Qualifiers: Asthma severity: mild Asthma persistence: intermittent Asthma complication type: uncomplicated Qualified Code(s): J45.20 - Mild intermittent asthma, uncomplicated Plan: Patient reports her asthma has been fairly well controlled over last several months. Medications: Refilled lisdexamfetamine (Vyvanse) Partial Fill upon patient request. 40 mg PO DAILY 30 days 30 caps 0RF F90.0 - Attention-deficit hyperactivity disorder, predominantly inattentive type lorazepam 0.5 mg PO DAILY 15 days PRN 7 tabs 2RF anxiety F41.1 - Generalized anxiety disorder Coding Level of Care Code Est Pt Level 4 (91862) Diagnoses Mixed hyperlipidemia E78.2 Hyperlipidemia type: mixed hyperlipidemia Attention deficit hyperactivity disorder (ADHD), predominantly inattentive type F90.0 Attention deficit-hyperactivity disorder type: predominantly inattentive REMBERTO (generalized anxiety disorder) F41.1 Mild intermittent asthma without complication J45.20 Asthma severity: mild Asthma persistence: intermittent Asthma complication type: uncomplicated Additional Codes REMBERTO-7 Assessment Billing - REMBERTO-7 Assessment Tool: REMBERTO-7 Assessment 57989 ([id number])
== END 2023-11-18 14:54 | disposition home or self-care (01) ==
PROVIDERS: PCP Physician Assistant; Visit Provider Physician Assistant
DX: E78.2 Mixed hyperlipidemia (principal); F90.0 Attention-deficit hyperactivity disorder, predominantly inattentive type; F41.1 Generalized anxiety disorder; J45.20 Mild intermittent asthma, uncomplicated
CPT/HCPCS: 99214

== ENCOUNTER 2023-12-04 11:30 | Outpatient (AMB) | payer OTHER, SELFPAY ==
--- NOTE | 2023-12-04 11:34 | MHC.OFFVIS ---
Intake Vital Signs 12/04/23 11:44 Height 5 ft 8 in Weight 160 lb 14.999 oz BMI 24.5 BP 108/68 Intake Visit Reasons: Colposcopy/DO NOT RS Recovery Assistant Required: No Information Interpreted: non-clinical & clinical Associate Theatre Professor: Associate Theatre Professor Present (Kinza MONTEZ) Accompanied by: Self / Same As Patient Allergies No Known Allergies Allergy (Verified 12/04/23 11:44) Is last menstrual period known: Yes Last menstrual period: 11/13/23 HPI HPI Comments History of Present Illness Details Presenting for co testing after LEEP cone which showed LAUREN 2-3 with negative margins in 09/24. No complain PFSH Medical History Allergic rhinitis Asthma Vitamin D deficiency Mixed hyperlipidemia Insomnia Herpes simplex type 1 infection Anxiety ADHD (attention deficit hyperactivity disorder) Surgical History Hx of wisdom tooth extraction Family History Father No problems noted. 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[employer] Gender identity: Female Cognitive needs: No Hearing needs: No Vision needs: No Female Reproductive History Menstrual Age of Menarche: 13 Date of last menstrual period: 11/13/23 Review of Systems Const All systems reviewed & are unremarkable except as noted in HPI and below Physical Exam Vital Signs: Last Vital Signs BP 108/68 12/04/23 11:44 BMI result Body Mass Index 24.5 General: Yes no CVA tenderness External Female Exam: normal external appearance and normal appearance of the urethra Speculum Exam - Vagina: normal appearance of the vagina, normal palpation, no lesions and no masses Speculum Exam - Cervix: normal appearance of the cervix, normal palpation, no lesions, no masses and nontender Bimanual exam- vagina & uterus: normal bimanual exam, normal palpation, uterine size normal, normal palpation, uterine shape normal, No Cervical tenderness present and non-tender Bimanual Exam- Adnexa, other: normal adnexae Back/Spine/Pelvis Back: no CVA tenderness Results AMB Test Urine AMB Test Urine Negative Last Edit by Kinza Patricia CMA on 12/04/23 11:46 Results Reviewed Results Reviewed: Laboratory Last Values [facility]st Clinic Negative 12/04/23 11:46 Assessment & Plan Assessment & Plan (1) 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 All questions answered, the patient verbalized understanding. 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
[2023-12-04 11:44] VITALS: BP 108/68; BMI 24.5
== END 2023-12-04 11:58 | disposition home or self-care (01) ==
PROVIDERS: PCP Physician Assistant; Visit Provider Obstetrics & Gynecology
DX: Z32.02 Encounter for pregnancy test, result negative (principal); D06.9 Carcinoma in situ of cervix, unspecified
CPT/HCPCS: 99213

== ENCOUNTER 2023-12-04 11:30 | Outpatient (REF) | payer OTHER, SELFPAY | END 2023-12-04 11:31 | disposition home or self-care (01) | LOC: HO.LNP 11:30 | PROVIDERS: PCP Physician Assistant; Visit Provider Obstetrics & Gynecology | DX: R87.612 Low grade squamous intraepithelial lesion on cytologic smear of cervix (LGSIL) (principal); Z32.02 Encounter for pregnancy test, result negative | CPT/HCPCS: 81025; 88142; 99212 ==

== ENCOUNTER 2024-02-19 11:36 | Outpatient (AMB) | payer OTHER, SELFPAY ==
--- NOTE | 2024-02-19 11:37 | MHC.PC.OV ---
Vital Signs 02/19/24 11:41 Height 5 ft 8 in Weight 165 lb 2 oz BMI 25.1 BP 120/82 Blood Pressure Location Lt brachial Position Sitting Pulse 70 Pulse Source Pulse Oximeter Pulse Oximetry (%) 99 Oxygen Delivery Method Room Air Intake Visit Reasons: f/u ADHD Allergies No Known Allergies Allergy (Verified 02/19/24 11:41) Medication List - Last Reconciled 02/19/24 by Kali Garza PA-C albuterol sulfate 90 mcg/actuation 2 puffs inhalation Q6H PRN lisdexamfetamine (Vyvanse) 40 mg PO DAILY 30 days lorazepam 0.5 mg PO DAILY PRN 15 days Tobacco use date assessed: 02/19/24 Dental Screening Dental Screen Date: 11/18/23 HPI f/u ADHD HPI Details Patient is a 28 year female here today for follow-up visit. Patient has a past medical history significant for asthma, ADHD, hyperlipidemia, LAUREN-3, generalized anxiety disorder. . 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 She has transition from Adderall to Vyvanse which has been okay though she does not feel Vyvanse is as effective or long-lasting. 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 Will consider reducing dose in the fall. .. Generalized anxiety disorder: Her anxiety has been fairly well controlled. Using lorazepam on a limited p.r.n. basis for panic which has been very effective for her. .. Hyperlipidemia: Most recent lipid panel showing improved total cholesterol and LDL. Cholesterol still remains borderline high. .. Asthma: Due to recent humid hot weather she did need to use her albuterol inhaler. Otherwise Asthma has been well controlled with only p.r.n. use of her albuterol inhaler Laboratory Tests 07/20/20 11/18/23 10:42 09:13 Cholesterol 254 228 H [facility] Medical History Allergic rhinitis Asthma Vitamin D deficiency Mixed hyperlipidemia Insomnia Herpes simplex type 1 infection Anxiety ADHD (attention deficit hyperactivity disorder) Surgical History Hx of wisdom tooth extraction Family History Father No problems noted. 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 Maxx Abebe, Jane Driver, Rangel Goodman and colleagues, with an educational den from [email or web address]. ACT Questionnaire In the past 4 weeks, how much of the time did your asthma keep you from getting as much done at work, school or at home?: None of the time During the past 4 weeks, how often have you had shortness of breath?: 1-2 times a week During the past 4 weeks, how often did your asthma symptoms wake you up at night or earlier than usual in the morning?: Not at all During the past 4 weeks, how often have you had to use your rescue inhaler or nebulizer medication?: Once a week or less How would you rate your asthma control during the past 4 weeks?: Completely controlled ACT Interpretation: Negative Score: 23 Review of Systems Const Denies headache(s) Eyes Denies loss of vision ENT Denies vertigo, Denies dizziness, Denies headache(s) and Denies sore throat Card Denies chest pain, Denies leg edema and Denies lightheadedness Resp Denies cough, Denies hemoptysis and Denies wheezing GI Denies abdominal pain, Denies melena, Denies constipation, Denies diarrhea and Denies vomiting Denies urinary frequency, Denies dysuria and Denies urinary urgency Musc Denies arthralgias, Denies joint swelling, Denies numbness and Denies tingling Neuro Denies Abnormal speech present, Denies behavioral changes, Denies vertigo, Denies dizziness, Denies headache(s), Denies loss of vision, Denies memory loss, Denies numbness and Denies tingling Psych Denies anxiety, Denies behavioral changes, Denies depression, Denies memory loss and Denies panic attacks Rm/Lymph Denies easy bleeding and Denies easy bruising Aller/Immun Denies wheezing Physical exam (Primary Care) Vital Signs: Last Vital Signs Pulse 70 02/19/24 11:41 BP 120/82 02/19/24 11:41 Pulse Ox 99 02/19/24 11:41 Oxygen Delivery Method Room Air 02/19/24 11:41 BMI result Body Mass Index 25.1 Tobacco/Smoking Status: Tobacco use Status Tobacco use date assessed 02/19/24 02/19/24 11:43 Patient Tobacco Use Status Never used Tobacco 02/19/24 11:39 e-Cigarette/Vaping Use Never Used 02/19/24 11:39 Thrive Assessment: Date of Thrive Assessment Date Thrive assessed 11/18/23 02/19/24 11:39 Const General: healthy appearing, no acute distress, alert and awake Nutritional Appearance: well nourished Orientation/consciousness: oriented to person, oriented to place and oriented to time HENMT Ears: TM's normal bilaterally General nose exam: Normal nasal mucous membranes and turbinates present Eyes Conjunctivae: conjunctivae normal Sclerae: sclerae normal Pupils: Equal, round and reactive pupils present Neck Neck: Yes no lymphadenopathy and Yes no JVD Thyroid: Thyroid normal Carotids: no bruits Resp Effort & Inspection: normal respiratory effort and not tachypneic Auscultation: no crackles, no rales, no rhonchi and no wheezes Cardio Rate: regular rate Rhythm: regular rhythm Heart sounds: no murmurs and normal S1 and S2 GI Palpation (GI): Soft to palpation, nontender, no hepatomegaly and no splenomegaly Auscultation: normal bowel sounds Skin General skin exam: no rashes or lesions noted and dry skin Neuro General: oriented to person, oriented to place and oriented to time Cranial nerves: Yes Equal, round and reactive pupils present Speech: No Abnormal speech present Gait exam (Neuro): Normal gait present Motor exam (neuro): no tremor noted Extrem Right upper extremity: full ROM Left upper extremity: full ROM Right lower extremity: full ROM; no edema Left lower extremity: full ROM; no edema Psych Mental Status: mental status grossly normal Speech and movement: Normal speech and movement present Affect: normal affect Attitude: cooperative Thought process: Normal thought process present Assessment and Plan Assessment & Plan (1) ADHD (attention deficit hyperactivity disorder): Code(s): F90.9 - Attention-deficit hyperactivity disorder, unspecified type Qualifiers: Attention deficit-hyperactivity disorder type: predominantly inattentive Qualified Code(s): F90.0 - Attention-deficit hyperactivity disorder, predominantly inattentive type Plan: Doing quite well 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 She continues on Vyvanse 40 mg which has been effective for her. She reports she is able to keep up with demanding course work. (2) HLD (hyperlipidemia): Code(s): E78.5 - Hyperlipidemia, unspecified Qualifiers: Hyperlipidemia type: mixed hyperlipidemia Qualified Code(s): E78.2 - Mixed hyperlipidemia Plan: Has a history elevated total cholesterol and LDL. Most recent lipid panel showing improved total cholesterol and LDL. She has been working on lifestyle modification . (3) Asthma: Comment: HISTORY IS CONSISTENT WITH MILD INTERMITTENT BRONCHIAL ASTHMA. PLAN IS TO DO COMPLETE PULMONARY FUNCTION TEST. WILL CHECK CBC FOR EIOSINOPHILIA WILL ALSO CHECK IGE LEVEL. TX : PATIENT HAS BEEN WELL EDUCATED FOR MANAGEMENT OF ASTHMA USE ALBUTEROL HFA 2 PUFFS Q 4-6 HOURS ONLY P.R.N. AFTER THE PULMONARY FUNCTION TEST WILL DECIDE IF SHE NEEDS ADDITIONAL INHALERS. Code(s): J45.909 - Unspecified asthma, uncomplicated Qualifiers: Asthma complication type: uncomplicated Asthma persistence: intermittent Asthma severity: mild Qualified Code(s): J45.20 - Mild intermittent asthma, uncomplicated Plan: Her asthma has been fairly well controlled. Only using her albuterol inhaler on as needed basis. Denies any nighttime awakenings with asthma symptoms or recent asthma exacerbations. Orders: Orders Comprehensive [place]. Panel Fast Today E78.2 - Mixed hyperlipidemia Lipid Panel Today E78.2 - Mixed hyperlipidemia Complete Blood Count no Diff Today E78.2 - Mixed hyperlipidemia Medications: Changed From albuterol sulfate 90 mcg/actuation 2 puffs inhalation Q6H PRN Shortness Of Breath Or Wheezing J45.20 - Mild intermittent asthma, uncomplicated To albuterol sulfate 90 mcg/actuation 2 puffs inhalation Q6H 8.5 grams 3RF Shortness Of Breath Or Wheezing 30 days J45.20 - Mild intermittent asthma, uncomplicated Refilled lorazepam 0.5 mg PO DAILY PRN 7 tabs 2RF anxiety 15 days F41.1 - Generalized anxiety disorder Coding Level of Care Code Est Pt Level 4 (92155) Diagnoses Attention deficit hyperactivity disorder (ADHD), predominantly inattentive type F90.0 Attention deficit-hyperactivity disorder type: predominantly inattentive Mixed hyperlipidemia E78.2 Hyperlipidemia type: mixed hyperlipidemia Mild intermittent asthma without complication J45.20 Asthma complication type: uncomplicated Asthma persistence: intermittent Asthma severity: mild
[2024-02-19 11:41] VITALS: BP 120/82; PULSE 70; O2SAT 99; BMI 25.1
== END 2024-02-19 12:00 | disposition home or self-care (01) ==
PROVIDERS: PCP Physician Assistant; Visit Provider Physician Assistant
DX: F90.0 Attention-deficit hyperactivity disorder, predominantly inattentive type (principal); E78.2 Mixed hyperlipidemia; J45.20 Mild intermittent asthma, uncomplicated
CPT/HCPCS: 99214

== ENCOUNTER 2025-01-14 10:17 | Outpatient (AMB) | payer OTHER, SELFPAY ==
--- NOTE | 2025-01-14 10:21 | MHC.PC.OV ---
Vital Signs 01/14/25 10:31 Height 5 ft 8 in Weight 156 lb 8 oz BMI 23.8 BP 112/68 Blood Pressure Location Lt brachial Position Sitting Pulse 75 Pulse Source Pulse Oximeter Temp 97.1 F Temp Source Temporal Artery Scan Pulse Oximetry (%) 100 Oxygen Delivery Method Room Air Intake Visit Reasons: CPE Addiction Social Worker Required: No Accompanied by: Self / Same As Patient Allergies No Known Allergies Allergy (Verified 01/14/25 10:44) Medication List - Last Reconciled 01/14/25 by Kali Garza PA-C albuterol sulfate 90 mcg/actuation 2 puffs inhalation Q6H 30 days lisdexamfetamine (Vyvanse) 40 mg PO DAILY 30 days lorazepam 0.5 mg PO DAILY PRN 15 days Tobacco use date assessed: 01/14/25 Dental Screening Dental Screen Date: 01/14/25 Did you have a dental visit in the last 12 months?: Yes Did you have a dental problem in the last 6 months where you did not have access to dental care?: No Was dental information given to patient?: Patient has dentist HPI CPE HPI Details Patient is a 29 year female here today for a routine annual physical. Patient has a past medical history significant for asthma, ADHD, hyperlipidemia, LAUREN-3, generalized anxiety disorder. Has multiple concerns today-- > She reports recurrent episodes of pneumonia requiring antibiotic treatment and diagnostic imaging. Previous exposure to HIV resulted in negative testing, although the event raised concern due to workplace conditions. The patient also experienced elevated AST levels from September to December, potentially influenced by medication or concurrent illness. Sinus arrhythmia was recently identified on past electrocardiogram as the patient notes potential orthostatic tachycardia symptoms and questions about POTS post several bouts of COVID-19. The patient faces challenges managing ADHD medication, noting increased anxiety and decreased focus with a switch from Adderall to Vyvanse. 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 . ADHD: Has been on Vyvanse for her ADHD though feels it is caused her more heart palpitations. She would like to return back to Adderall 20 mg extended release which was more effective for her without much side effect. .. Generalized anxiety disorder: Her anxiety has been fairly well controlled. Using lorazepam on a limited p.r.n. basis for panic which has been very effective for her. .. Hyperlipidemia: Most recent lipid panel showing improved total cholesterol and LDL. Cholesterol still remains borderline high. .. Asthma: Due to recent humid hot weather she did need to use her albuterol inhaler. Otherwise Asthma has been well controlled with only p.r.n. 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 1. Little interest or pleasure in doing things: not at all 2. Feeling down, depressed, or hopeless: not at all 3. Trouble falling or staying asleep, or sleeping too much: more than half the days 4. Feeling tired or having little energy: more than half the days 5. Poor appetite or overeating: several days 6. Feeling bad about yourself - or that you are a failure or have let yourself or your family down: not at all 7. Trouble concentrating on things, such as reading the newspaper or watching television: more than half the days 8. Moving or speaking so slowly that other people could have noticed. Or the opposite - being so fidgety or restless that you have been moving around a lot more than usual: not at all 9. Thoughts that you would be better off or of hurting yourself in some way: not at all Total score: 7 Depression Screening Interpretation: Positive Depression Screening Follow-up: Existing condition and In treatment Depression Screening Done: Yes 27524 - PHQ-9 Billing: Yes Source: Developed by Drs. Maxx Abebe, Jane Driver, Rangel Goodman and colleagues, with an educational den from [employer]. Thrive Questionnaire Date Thrive assessed: 01/14/25 I am a: Patient What is your living situation today?: I have a steady place to live Within the past 12 months, did the food you bought not last and you didn't have the money to get more?: I choose not to answer this question Within the past 12 months, did you worry whether your food would run out before you got money to buy more?: I choose not to answer this question Do you have trouble paying for medicines?: No Do you have trouble getting transportation to medical appointments?: No Do you have trouble paying your heating and electricity bill?: No Do you have trouble taking care of your child, family member or friend?: No Do you have trouble with day-to-day activities such as bathing, preparing meals, shopping, managing finances, etc.?: No Are you currently unemployed and looking for a job?: No Are you interested in more education?: I choose not to answer this question Please select the resources that you would like help with: None Currently or been in a relationship where the following occur: I choose not to answer THRIVE Score: 0 AUDIT C Alcohol Use Questionnaire (AUDIT-C) 1. How often do you have a drink containing alcohol?: Monthly or less 2. How many drinks containing alcohol do you have on a typical day when you are drinking?: 1 or 2 3. How often do you have six or more drinks on one occasion?: Never Total Score: 1 REMBERTO-7 AMB Questionnaire REMBERTO-7 Date REMBERTO - 7 assessed: 01/14/25 Feeling nervous, anxious, or on edge: 1 = Several days Not being able to stop or control worryin = Not at all Worrying too much about different things: 1 = Several days Trouble relaxin = Several days Being so restless that it is hard to sit still: 3 = Nearly every day Becoming easily annoyed or irritable: 1 = Several days Feeling afraid as if something awful might happen: 0 = Not at all Total REMBERTO-7 score (0-4 normal; 5-9 mild; 10-14 moderate; 15-21 severe): 7 Source: Developed by Drs. Maxx Abebe, Jnae Driver, Rangel Goodman and colleagues, with an educational den from [employer]. REMBERTO-7 Assessment Billing REMBERTO-7 Assessment Tool: REMBERTO-7 Assessment 49065 Review of Systems Const Denies body aches, Denies chills, Denies excessive sweating, Denies fatigue, Denies fever(s) and Denies headache(s) Eyes Denies blurry vision ENT Denies dysphagia, Denies vertigo, Denies dizziness, Denies headache(s), Denies hearing loss and Denies tinnitus Card Denies chest pain, Denies chest pain with activity, Denies syncope, Denies irregular heart rhythm and Denies dyspnea Resp Denies chest congestion, Denies cough, Denies hemoptysis, Denies dyspnea and Denies wheezing GI Denies abdominal pain, Denies melena, Denies hematochezia, Denies coffee ground emesis, Denies dysphagia, Denies diarrhea, Denies nausea and Denies vomiting Denies urinary frequency, Denies dysuria, Denies urinary hesitancy and Denies urinary urgency Musc Denies arthralgias, Denies limited range of motion, Denies muscle cramps and Denies muscle weakness Skin/Breast Denies rash and Denies skin ulcer Neuro Denies Abnormal speech present, Denies confusion, Denies vertigo, Denies dizziness, Denies syncope, Denies headache(s), Denies memory loss and Denies seizure-like activity Psych Denies anxiety, Denies confusion, Denies depression, Denies memory loss, Denies panic attacks and Denies paranoia Endo Denies excessive sweating, Denies fatigue, Denies flushing, Denies polydipsia and Denies polyuria Aller/Immun Denies wheezing Physical exam (Primary Care) Vital Signs: Last Vital Signs Temp 97.1 F 01/14/25 10:31 Pulse 75 01/14/25 10:31 BP 112/68 01/14/25 10:31 Pulse Ox 100 01/14/25 10:31 Oxygen Delivery Method Room Air 01/14/25 10:31 BMI result Body Mass Index 23.8 Tobacco/Smoking Status: Tobacco use Status Tobacco use date assessed 01/14/25 01/14/25 10:38 Patient Tobacco Use Status Never used Tobacco 01/14/25 10:21 e-Cigarette/Vaping Use Never Used 01/14/25 10:21 PHQ-9: PHQ-9 Score PHQ-9: Total score 7 01/14/25 12:49 Depression Screening Interpretation: Positive Depression Screening Follow-up: Existing condition and In treatment Thrive Assessment: Date of Thrive Assessment Date Thrive assessed 01/14/25 01/14/25 10:21 Currently or been in a relationship where the following occur: I choose not to answer Const General: cooperative, comfortable, no acute distress, alert and awake; No confusion Orientation/consciousness: oriented to person, oriented to place, patient oriented x3 and No confusion HENMT Head: Yes normocephalic Ears: external ears normal and TM's normal bilaterally Face and sinus: No sinus tenderness Mouth: Normal oral and palatal mucosa present and tongue normal Teeth and gingiva: dentition normal and gingiva normal Throat: Yes posterior oropharynx normal, Yes tonsils normal and Yes uvula midline Eyes Conjunctivae: conjunctivae normal Sclerae: sclerae normal Pupils: Equal, round and reactive pupils present EOM: EOMs intact bilaterally Direct Ophthalmoscopy: No no photophobia Neck Neck: Yes no lymphadenopathy, No tender and Yes no JVD Thyroid: Thyroid normal Carotids: no bruits Chest Chest palpation & inspection: no tenderness Resp Effort & Inspection: normal respiratory effort, no audible wheezes, not labored and no stridor Auscultation: no crackles, no rales, no rhonchi and no wheezes Cardio Jugular venous distension: no JVD Rate: regular rate, not bradycardic and not tachycardic Rhythm: regular rhythm Bruits: no carotid bruits Peripheral pulses: Peripheral pulses 2+ throughout GI Inspection: Yes normal to inspection, No abdominal wall ecchymosis and No visible herniation Palpation (GI): Soft to palpation, nontender, no guarding, not rigid and No hepatosplenomegaly present Auscultation: normoactive bowel sounds General: Yes no CVA tenderness Back/Spine/Pelvis Back: no CVA tenderness and No back tenderness Cervical Spine: cervical ROM normal Thoracic/Lumbar Spine: thoracic and lumbar spine normal to inspection, straight leg raise negative bilaterally, No thoraco-lumbar ROM limited and No lumbar spinal tenderness Skin Lesions: no lesions Rashes: no rashes Wounds: no wounds Neuro General: oriented to person, oriented to place, patient oriented x3, CN's II-XI intact bilaterally and No confusion Cranial nerves: Yes Equal, round and reactive pupils present and Yes Normal accommodation reflex present Cognition (Neuro): normal cognition Speech: No Abnormal speech present Gait exam (Neuro): Normal gait present Motor exam (neuro): 5/5 motor strength present throughout Extrem Right upper extremity: full ROM; no cyanosis Left upper extremity: full ROM; no cyanosis Right lower extremity: no edema Left lower extremity: no edema Psych Appearance: grossly normal Mental Status: mental status grossly normal Affect: normal affect Attitude: cooperative Thought process: Normal thought process present Immunizations pneumoc 20-nagi conj-dip cr(PF) 0.5 mL IM syringe Performing Provider: Kali Garza PA-C [facility] Administered by: FANY Mansfield on 01/14/25 12:49 Dose Route Admin Location Dispensed Lot Number Expiration Date [facility] Night Monitor 0.5 mL IM Left Deltoid 0.5 mL [id number] 10/31/25 0909-0090-07 WYETH/PFIZER VIS Given Date VIS Provided VIS Publication Date 01/14/25 Single Vaccine 23 Eligibility Eligibility Date Funding Source Not [facility] Eligible 01/14/25 Private Coding Level of Care Code Est Pt Prev Care 18-39y(85803) Diagnoses Annual physical exam Z00.00 Attention deficit hyperactivity disorder (ADHD), predominantly inattentive type F90.0 Attention deficit-hyperactivity disorder type: predominantly inattentive Mixed hyperlipidemia E78.2 Hyperlipidemia type: mixed hyperlipidemia Elevated liver enzymes R74.8 Raynaud's disease without gangrene I73.00 Raynaud?s-associated gangrene presence: without gangrene Pre-syncope R55 Sensorineural hearing loss (SNHL) of both ears H90.3 Laterality: bilateral Irritable bowel syndrome with diarrhea K58.0 Irritable bowel syndrome type: with diarrhea Additional Codes REMBERTO-7 Assessment Billing - REMBERTO-7 Assessment Tool: REMBERTO-7 Assessment 38423 ([id number]) PHQ-9 - 79776 - PHQ-9 Billing: Yes ([id number]) Assessment & Plan Assessment & Plan (1) Annual physical exam: Code(s): Z00.00 - Encounter for general adult medical examination without abnormal findings Category: Medical Plan: As per HPI (2) ADHD (attention deficit hyperactivity disorder): Code(s): F90.9 - Attention-deficit hyperactivity disorder, unspecified type Category: Medical Qualifiers: Attention deficit-hyperactivity disorder type: predominantly inattentive Qualified Code(s): F90.0 - Attention-deficit hyperactivity disorder, predominantly inattentive type Plan: Patient would like to return back to [facility] for her ADHD symptoms. With his medication. 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 Was previously on Vyvanse though felt there were side effects of increased heart palpitations (3) HLD (hyperlipidemia): Code(s): E78.5 - Hyperlipidemia, unspecified Category: Medical Qualifiers: Hyperlipidemia type: mixed hyperlipidemia Qualified Code(s): E78.2 - Mixed hyperlipidemia Plan: Patient has a history of hyperlipidemia. Has been trying to work on being more physically active and adapt to low-cholesterol diet (4) Elevated liver enzymes: Code(s): R74.8 - Abnormal levels of other serum enzymes Category: Medical Plan: Was noted to have liver enzyme elevation in the setting of her pneumonia on taking antibiotics. Will recheck liver enzymes to ensure stabilization. (5) Raynauds syndrome: Code(s): I73.00 - Raynaud's syndrome without gangrene Category: Medical Qualifiers: Raynaud?s-associated gangrene presence: without gangrene Qualified Code(s): I73.00 - Raynaud's syndrome without gangrene Plan: Patient does have signs symptoms Raynaud's syndrome. At times Raynaud's syndrome comes along with other autoimmune diseases thus will check LADAN and double-stranded anti-DNA (6) Pre-syncope: Code(s): R55 - Syncope and collapse Category: Medical Plan: Coordinating tilt table test for POTS, lifestyle management discussed, cardiology follow-up planned. Will send for repeat EKG as EKGs showing sinus arrhythmia. (7) SNHL (sensorineural hearing loss): Code(s): H90.5 - Unspecified sensorineural hearing loss Category: Medical Qualifiers: Laterality: bilateral Qualified Code(s): H90.3 - Sensorineural hearing loss, bilateral Plan: Arranged for hearing and vision evaluations. (8) IBS (irritable bowel syndrome): Code(s): K58.9 - Irritable bowel syndrome, unspecified Category: Medical Qualifiers: Irritable bowel syndrome type: with diarrhea Qualified Code(s): K58.0 - Irritable bowel syndrome with diarrhea Plan: Dicyclomine for symptomatic relief; dietary changes recommended. Orders: Orders ECG 12 lead EKG Today R55 - Syncope and collapse LADAN Reflex Titer and Pattern Today I73.00 - Raynaud's syndrome without gangrene Anti DNA DS Antibody Today I73.00 - Raynaud's syndrome without gangrene TSH reflex Free T4 Today I73.00 - Raynaud's syndrome without gangrene Triiodothyronine T3 Total Today I73.00 - Raynaud's syndrome without gangrene T4 Thyroxine Today I73.00 - Raynaud's syndrome without gangrene Pneumococcal 20 Immunization Today Z23 - Encounter for immunization Referrals Cardiology Referral R55 - Syncope and collapse Speech and Hearing Referral H90.3 - Sensorineural hearing loss, bilateral Medications: New dextroamphetamine-amphetamine 20 mg ER (Adderall XR) Partial Fill upon patient request. 20 mg PO DAILY 28 caps 0RF 28 days F90.0 - Attention-deficit hyperactivity disorder, predominantly inattentive type dicyclomine 20 mg PO TID 90 tabs 3RF 30 days K58.0 - Irritable bowel syndrome with diarrhea Discontinued lisdexamfetamine (Vyvanse) Partial Fill upon patient request. Discontinued Reason: Doctor's Order 40 mg PO DAILY 30 days 30 caps 0RF F90.0 - Attention-deficit hyperactivity disorder, predominantly inattentive type
[2025-01-14 10:31] VITALS: BP 112/68; PULSE 75; TEMP 36.2; O2SAT 100; BMI 23.8
--- OUTSIDE RECORDS SUMMARY | 2025-01-14 11:17 | XMS_ITS | Clinical Summary ---
Author Organization [address] [place] [address] [place] [phone] Phone Care Team Providers Care Bad Cloth Checker Name Role Phone Kali Garza Primary Care Provider Allergies No known active allergies Medications Ventolin HFA 90 mcg/actuation inhaler TAKE 2 PUFFS INHALED EVERY 6 HOURS FOR SHORTNESS OF BREATH OR WHEEZING FOR 30 DAYS 4 Active lisdexamfetamin e (VYVANSE) 40 mg capsule TAKE 1 CAPSULE BY MOUTH DAILY FOR 30 DAYS PARTIAL FILL UPON PATIENT REQUEST. 5 Active LORazepam (ATIVAN) 0.5 mg tablet TAKE 1 TABLET BY MOUTH DAILY NEEDED FOR ANXIETY FOR 15 DAYS 5 Active methocarbamoL (ROBAXIN) 750 mg tablet Take 1 tablet (750 mg total) by mouth 4 (four) times a day for 10 days. 40 each 5 Active Encounters Date Type Department Care Team Description 01/01/2025 11:33 PM EDT - 01/02/2025 1:43 AM EDT Emergency [facility] Emergency [address] [place] [id number] Encounter for laboratory test (Primary Dx) Discharge Disposition: Home or Self Care from Last 3 Months Medical History Medical History Date Comments Adhd Asthma Social History Tobacco Use Types Packs/Day Years Used Date Smoking Tobacco: Never Smokeless Tobacco: Never Tobacco Cessation:Counseling Given: Not Answered Comments No Sex and Gender Information Value Date Recorded Sex Assigned at Female 09/25/2024 11:59 AM EST Legal Sex Female 2:32 PM EST Gender Identity Female 09/25/2024 11:59 AM EST Sexual Orientation Not on file Obstetrics History Last Filed Vital Signs Vital Sign Reading Time Taken Comments Blood Pressure 124/83 09/25/2024 11:57 AM EST Pulse 88 09/25/2024 11:57 AM EST Temperature 36.4 ??C (97.6 ??F) 09/25/2024 11:[address] Respiratory Rate 17 09/25/2024 11:57 AM EST Oxygen Saturation 99% 09/25/2024 11:57 AM EST Inhaled Oxygen Concentration - - Weight 70.3 kg (155 lb) 09/25/2024 11:57 AM EST Height 172.7 cm (5' 8 ) 09/25/2024 11:57 AM EST Body Mass Index 23.57 09/25/2024 11:57 AM EST Plan of Treatment Health Maintenance Due Date Last Done Comments DTaP,Tdap,and Td Vaccines (1 - Tdap) 2014 Hepatitis B Vaccines (1 of 3 - 19+ 3-dose series) 2014 Cervical Cancer Screening: P ap Smear 2016 COVID-19 Vaccine ( - 2023-2 5 season) 2024 09/25/2020, 08/22/2020 Depression Screening 07/10/2024 Social Influencers of Health Screening 07/10/2024 Influenza Vaccine (Season Ended) 2025 05/31/2023, 05/31/2020 HIV Screening Completed 01/01/2025 Hepatitis C Screening Completed 01/01/2025 HIB Vaccines Aged Out No longer eligi ble based on patient's age to complete this topic HPV Vaccines Aged Out No longer eligi ble based on patient's age to complete this topic Hepatitis A Vaccines Aged Out No long er eligible based on patient's age to complete this topic IPV Vaccines Aged Out No longer eligi ble based on patient's age to complete this topic MMR Vaccines Aged Out No longer eligi ble based on patient's age to complete this topic Meningococcal ACWY Vaccine Aged Out N o longer eligible based on patient's age to complete this topic Meningococcal B Vaccine Aged Out No l onger eligible based on patient's age to complete this topic Pneumococcal Vaccine: Pediatrics (0 to 5 Years) and At-Risk Patients (6 to 64 Years) Aged Out No longer eligible b ased on patient's age to complete this topic RSV Immunization Patients Under 20 months Aged Out No longer eligible b ased on patient's age to complete this topic Varicella Vaccines Aged Out No longer eligible based on patient's age to complete this topic Procedures Procedure Name Priority Date/Time Associated Diagnosis Comments POC , URINE DIAGNOSTIC STAT 01/02/2025 12:01 AM EDT CBC WITH AUTO DIFFERENTIAL STAT 01/01/2025 11:55 PM EDT HIV 1, 2 ANTIBODY, P24 ANTIGEN WITH REFLEX TO DIFFERENTIATION STAT 01/01/2025 11:55 PM EDT HEPATITIS PANEL, ACUTE WITH REFLEX TO CONFIRMATION STAT 01/01/2025 11:55 PM EDT COMPREHENSIVE METABOLIC PANEL STAT 01/01/2025 11:55 PM EDT CBC AND DIFFERENTIAL STAT 01/01/2025 11:55 PM EDT from Last 3 Months Results * POC , urine manually resulted (01/02/2025 12:01 AM EDT) HCG, Ur POC Negative Negative Urine Urine specimen obtained by clean catch procedure / Unknown 01/02/2025 12:01 AM EDT [facility] POINT OF CARE TEST ENTER/ EDIT ORDERABLES Final Result * HIV 1,2 antibody, p24 antigen with reflex to differentiation (01/01/2025 11:55 PM EDT) HIV Combo AB/AG Negative Negative LAB CHEMISTRY METHOD 01/02/2025 1:[address] [facility] Blood Venous blood specimen / Unknown Venipuncture / Unknown 01/01/2025 11:55 PM EDT 01/01/2025 11:[address] [facility] - 01/02/2025 1:21 AM EDT This assay is a 4th generation assay allowing for earlier detection of HIV infection by detecting the presence of the HIV-1 p24 antigen as well as the traditional antibodies to HIV type 1 (including group O) and type 2. ??Use of a 4th generation assay is the current CDC recommendation for HIV screening. [facility] BLOOD ORDERABLES Clarita l Result Performing Organization Address [facility]/ZIP Co de Phone Number [facility] [address] [place] [address], [place] [phone] * Hepatitis panel, acute with reflex to confirmation (01/01/2025 11:55 PM EDT) Pathologist [facility] Hepatitis B Surface Ag Negative Negative LAB CHEMISTRY METHOD 01/02/2025 1:[address] [facility] Hepatitis A Antibody IgM Negative Negative LAB CHEMISTRY METHOD 01/02/2025 1:[address] [facility] Hep B Core IgM Negative Negative LAB CHEMISTRY METHOD 01/02/2025 1:[address] [facility] Hepatitis C Antibody Negative Negative LAB CHEMISTRY METHOD 01/02/2025 1:[address] [facility] Blood Venous blood specimen / Unknown Venipuncture / Unknown 01/01/2025 11:55 PM EDT 01/01/2025 11:58 PM EDT [facility] BLOOD ORDERABLES Clarita l Result Performing Organization Address [facility] Co de Phone Number [facility] [address] [place] [address], [place] [phone] * (ABNORMAL) CBC auto differential (01/01/2025 11:55 PM EDT) Pathologist [facility] WBC 11.6(H) 4.8 - 10.8 K/[facility] LAB HEMETOLOGY METHOD 01/02/2025 12:[address] [facility] RBC 4.40 3.80 - 4.80 M/[facility] LAB HEMETOLOGY METHOD 01/02/2025 12:06 AM [facility] Hemoglobin 13.5 11.5 - 16.0 g/dL LAB HEMETOLOGY METHOD 01/02/2025 12:06 AM [facility] Hematocrit 41.2 35.0 - 47.0 % LAB HEMETOLOGY METHOD 01/02/2025 12:06 AM [facility] MCV 92.8 79.0 - 98.0 FL LAB HEMETOLOGY METHOD 01/02/2025 12:06 AM [facility] MCH 30.4 27.0 - 32.0 pcg LAB HEMETOLOGY METHOD 01/02/2025 12:06 AM [facility] MCHC 32.8 32.0 - 37.0 g/dL LAB HEMETOLOGY METHOD 01/02/2025 12:06 AM [facility] RDW 12.5 11.0 - 15.0 % LAB HEMETOLOGY METHOD 01/02/2025 12:06 AM [facility] Platelets 356 130 - 400 K/mcL LAB HEMETOLOGY METHOD 01/02/2025 12:06 AM [facility] MPV 9.2 7.0 - 11.0 FL LAB HEMETOLOGY METHOD 01/02/2025 12:06 AM [facility] NRBC 0.0 <1.0 % LAB HEMETOLOGY METHOD 01/02/2025 12:06 AM [facility] NRBC Absolute 0.00 <0.10 K/mcL LAB HEMETOLOGY METHOD 01/02/2025 12:06 AM [facility] Neutrophils Relative 63.3 % LAB HEMETOLOGY METHOD 01/02/2025 12:06 AM [facility] Lymphocytes Relative 26.0 % LAB HEMETOLOGY METHOD 01/02/2025 12:06 AM [facility] Monocytes Relative 7.1 % LAB HEMETOLOGY METHOD 01/02/2025 12:06 AM [facility] Eosinophils Relative 2.7 % LAB HEMETOLOGY METHOD 01/02/2025 12:06 AM [facility] Basophils Relative 0.6 % LAB HEMETOLOGY METHOD 01/02/2025 12:06 AM [facility] Immature Granulocytes Relative 0.3 % LAB HEMETOLOGY METHOD 01/02/2025 12:06 AM [facility] Neutrophils Absolute 7.33(H) 1.50 - 7.00 K/mcL LAB HEMETOLOGY METHOD 01/02/2025 12:06 AM [facility] Lymphocytes Absolute 3.01 1.00 - 5.00 K/mcL LAB HEMETOLOGY METHOD 01/02/2025 12:06 AM [facility] Monocytes Absolute 0.82 0.20 - 1.00 K/mcL LAB HEMETOLOGY METHOD 01/02/2025 12:06 AM [facility] Eosinophils Absolute 0.31 0.00 - 0.50 K/mcL LAB HEMETOLOGY METHOD 01/02/2025 12:06 AM [facility] Basophils Absolute 0.07 0.00 - 0.20 K/mcL LAB HEMETOLOGY METHOD 01/02/2025 12:06 AM [facility] Immature Granulocytes Absolute 0.04(H) 0.00 - 0.03 K/mcL LAB HEMETOLOGY METHOD 01/02/2025 12:06 AM [facility] Blood Venous blood specimen / Unknown Venipuncture / Unknown 01/01/2025 11:55 PM EDT 01/01/2025 11:58 PM EDT us [facility] BLOOD ORDERABLES Clarita martinez Result [facility] [address] [place] [address], * (ABNORMAL) Comprehensive metabolic panel (01/01/2025 11:55 PM EDT) Sodium 138 133 - 145 mmol/L LAB CHEMISTRY METHOD 01/02/2025 12:34 AM [facility] Potassium 4.0 3.5 - 5.5 mmol/L LAB CHEMISTRY METHOD 01/02/2025 12:34 AM [facility] Chloride 103 96 - 110 mmol/L LAB CHEMISTRY METHOD 01/02/2025 12:34 AM [facility] CO2 31 21 - 32 mmol/L LAB CHEMISTRY METHOD 01/02/2025 12:34 AM [facility] Anion Gap 4 3 - 11 LAB CHEMISTRY METHOD 01/02/2025 12:34 AM [facility] Glucose 96 70 - 100 mg/dL LAB CHEMISTRY METHOD 01/02/2025 12:34 AM [facility] BUN 8 5 - 25 mg/dL LAB CHEMISTRY METHOD 01/02/2025 12:34 AM [facility] Creatinine 0.64 0.50 - 1.10 mg/dL LAB CHEMISTRY METHOD 01/02/2025 12:34 AM [facility] eGFR 123 >=60 mL/min/1. 73m2 LAB CHEMISTRY METHOD 01/02/2025 12:34 AM [facility] Comment:Calculation based on the??Chronic Kidney Disease Epidemiology Collaboration (CKD-EPI) equation refit??without adjustment for race. BUN/Creatinine Ratio 12.5 LAB CHEMISTRY METHOD 01/02/2025 12:34 AM [facility] Calcium 9.7 8.5 - 10.5 mg/dL LAB CHEMISTRY METHOD 01/02/2025 12:34 AM [facility] AST (SGOT) 76(H) 10 - 42 unit/L LAB CHEMISTRY METHOD 01/02/2025 12:[address] [facility] ALT (SGPT) 40 10 - 60 unit/L LAB CHEMISTRY METHOD 01/02/2025 12:[address] [facility] Alkaline Phosphatase 62 42 - 121 unit/L LAB CHEMISTRY METHOD 01/02/2025 12:[address] [facility] Total Protein 7.6 6.0 - 8.0 g/dL LAB CHEMISTRY METHOD 01/02/2025 12:[address] [facility] Albumin 4.3 3.2 - 5.0 g/dL LAB CHEMISTRY METHOD 01/02/2025 12:34 AM [facility] Total Bilirubin 0.7 0.0 - 1.4 mg/dL LAB CHEMISTRY METHOD 01/02/2025 12:34 AM [facility] Blood Venous blood specimen / Unknown Venipuncture / Unknown 01/01/2025 11:55 PM EDT 01/01/2025 11:58 PM EDT [facility] BLOOD ORDERABLES Clarita martinez Result [facility] [address] [place] [address], from Last 3 Months Insurance GENERIC AETNA DOMESTIC Care Teams Bad Cloth Checker Relationship Specialty Start Date End Date Kali Garza PA [address] [place] [phone] PCP - General Physician Crate Icer 09/25/24
== END 2025-01-14 11:09 | disposition home or self-care (01) ==
LOC: HO.HMCH 10:18
PROVIDERS: PCP Physician Assistant; Visit Provider Physician Assistant
DX: Z00.00 Encounter for general adult medical examination without abnormal findings (principal); F90.0 Attention-deficit hyperactivity disorder, predominantly inattentive type; E78.2 Mixed hyperlipidemia; R74.8 Abnormal levels of other serum enzymes; I73.00 Raynaud's syndrome without gangrene; R55 Syncope and collapse; H90.3 Sensorineural hearing loss, bilateral; K58.0 Irritable bowel syndrome with diarrhea; Z23 Encounter for immunization

== ENCOUNTER → 2025-01-14 10:17 | Outpatient (BNVA) | payer OTHER, SELFPAY | PROVIDERS: PCP Physician Assistant; Visit Provider Physician Assistant | DX: Z00.00 Encounter for general adult medical examination without abnormal findings (principal); J45.909 Unspecified asthma, uncomplicated; E78.2 Mixed hyperlipidemia; F90.0 Attention-deficit hyperactivity disorder, predominantly inattentive type; F41.1 Generalized anxiety disorder; R74.8 Abnormal levels of other serum enzymes; I73.00 Raynaud's syndrome without gangrene; R55 Syncope and collapse; H90.3 Sensorineural hearing loss, bilateral; K58.0 Irritable bowel syndrome with diarrhea; Z23 Encounter for immunization | CPT/HCPCS: 90471; 90677; 96127 ==

== ENCOUNTER 2025-04-20 10:02 | Outpatient (REF) | payer OTHER, SELFPAY ==
--- NOTE | 2025-04-20 10:06 | ECG_ITS ---
Test Reason : syncope and collapse Blood Pressure : */* mmHG Vent. Rate : 70 BPM Atrial Rate : 70 BPM P-R Int : 138 ms QRS Dur : 86 ms QT Int : 372 ms P-R-T Axes : 59 101 49 degrees QTcB Int : 401 ms Normal sinus rhythm with sinus arrhythmia Rightward axis Borderline ECG When compared with ECG of 30-May-2013 11:19, No significant change was found Referred By: Kali Garza Electronically Signed By: DIMPLE GARG MD
[2025-04-20 11:00] LABS: Hemoglobin A1C 132.3475 umol/L; Total Hemoglobin (HGBA1C) 3832.2439 umol/L
--- OUTSIDE RECORDS SUMMARY | 2025-04-20 11:16 | XMS_ITS | Clinical Summary ---
Author Organization [address] [place] [address] [place] [phone] Phone Care Team Providers Care Adjunct Professor Of Law Name Role Phone Kali Garza Primary Care Provider [phone] Allergies No known active allergies Medications Ventolin [...] for 10 days. 40 each 5 Active Medical History Medical History Date Comments Adhd [...] 88 09/25/2024 11:57 AM EST Temperature 36.4 C (97.6 F) 09/25/2024 11:57 AM EST Respiratory Rate 17 09/25/2024 11:57 AM EST [...] Screening: P ap Smear 2016 COVID-19 Vaccine (2023-2 5 season) 2024 09/25/2020, 08/22/2020 Social Influencers of Health Screening 07/10/2024 Depression Screening 09/02/2024 Influenza Vaccine (#1) 2025 3, 05/31/2020 HIV Screening Completed 01/01/2025 Hepatitis C [...] 5 Years) and At-Risk Patients (6 to 49 Years) Aged Out No longer eligible b ased on patient's age to complete this topic RSV Immunization Patients Under 20 months Aged Out No longer eligible b ased on patient's age to complete this topic Varicella Vaccines Aged Out No longer eligible based on patient's age to complete this topic Procedures Procedure Name Priority Date/Time Associated Diagnosis Comments HEPATITIS PANEL, ACUTE WITH REFLEX TO CONFIRMATION STAT 01/01/2025 11:55 PM EDT HIV 1, 2 ANTIBODY, P24 ANTIGEN WITH REFLEX TO DIFFERENTIATION STAT 01/01/2025 11:55 PM EDT from Last 3 Months or Most Recently Relevant to Health Maintenance Results * HIV 1,2 antibody, p24 antigen with reflex to differentiation (01/01/2025 11:55 PM EDT) HIV Combo AB/AG Negative Negative LAB CHEMISTRY METHOD 01/02/2025 1:21 AM EDT [facility] Blood Venous blood specimen / Unknown Venipuncture / Unknown 01/01/2025 11:55 PM EDT 01/01/2025 11:58 PM EDT Narrative [facility] - 01/02/2025 1:21 AM EDT This assay is a 4th generation assay allowing for earlier detection of HIV infection by detecting the presence of the HIV-1 p24 antigen as well as the traditional antibodies to HIV type 1 (including group O) and type 2. Use of a 4th generation assay is the current CDC recommendation for HIV screening. us [facility] BLOOD ORDERABLES Clarita martinez Result [facility] [address] [place] [address], [place] [phone] * Hepatitis panel, acute with reflex to confirmation (01/01/2025 11:55 PM EDT) Pathologist [facility] Hepatitis B Surface Ag Negative Negative LAB CHEMISTRY METHOD 01/02/2025 1:22 AM EDT [facility] Hepatitis A Antibody IgM Negative Negative LAB CHEMISTRY METHOD 01/02/2025 1:22 AM EDT [facility] Hep B Core IgM Negative Negative LAB CHEMISTRY METHOD 01/02/2025 1:22 AM EDT [facility] Hepatitis C Antibody Negative Negative LAB CHEMISTRY METHOD 01/02/2025 1:22 AM EDT [facility] Blood Venous blood specimen / Unknown Venipuncture / Unknown 01/01/2025 11:55 PM EDT 01/01/2025 11:58 PM EDT [facility] BLOOD ORDERABLES Clarita martinez Result [facility] [address] [place] [address], from Last 3 Months or Most Recently Relevant to Health Maintenance Insurance A[employer] DOME[employer]IC [employer]OME[employer] Care Teams Adjunct Professor Of Law Relationship Specialty Start Date End Date Kali Garza PA PCP - General Physician Director Transportation 09/25/24
[2025-04-20 12:02] LABS: Ferritin 27 ng/mL (10-122)
[2025-04-22 14:43] LABS: Anti Nuclear Antibody Screen NEGATIVE (NEGATIVE)
[2025-04-23 01:03] LABS: TS Negative Control Passed; TS Panel A 0; TS Panel B 0; TS Positive Control Passed; TSpotTB Negative (Negative)
== END 2025-04-20 10:03 | disposition home or self-care (01) ==
LOC: HO.LAB 10:02
PROVIDERS: PCP Physician Assistant; Referring Provider Internal Medicine; Visit Provider Physician Assistant
DX: Z11.1 Encounter for screening for respiratory tuberculosis (principal); Z13.1 Encounter for screening for diabetes mellitus; I73.00 Raynaud's syndrome without gangrene; N93.9 Abnormal uterine and vaginal bleeding, unspecified; E78.2 Mixed hyperlipidemia; R55 Syncope and collapse
CPT/HCPCS: 36415; 82306; 82533; 82728; 83036; 84436; 84443; 84480; 85652; 86038; 86141; 86225; 86481; 93005

== ENCOUNTER → 2025-04-20 10:06 | Outpatient (BNV) | payer OTHER, SELFPAY | PROVIDERS: PCP Physician Assistant; Referring Provider Internal Medicine; Visit Provider Internal Medicine Cardiovascular Disease | DX: R55 Syncope and collapse (principal) | CPT/HCPCS: 93010 ==

== ENCOUNTER 2025-05-25 10:52 | Outpatient (AMB) | payer OTHER, SELFPAY ==
[2025-05-25 11:11] VITALS: BP 120/80; PULSE 70; BMI 24.1
--- NOTE | 2025-05-25 11:11 | A.OFFVIS_ITS ---
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 The patient reports experiencing palpitations and tachycardia over the past five years, with episodes of heart rates ranging from 40 to 191 beats per minute. These episodes occur both at rest and during activity, and are sometimes accompanied by dizziness and presyncope, particularly when standing for pr olonged periods or upon standing up quickly. She describes an episode of electrical shock-like chest pain following a double work shift, during which she was fatigued and possibly dehydrated. The patient has not experienced syncope but reports frequent presyncope and lightheadedness. The patient has had pneumonia twice in the past year. She has been diagnosed with ADHD, currently managed with a low dose of Adderall, after switching from Vyvanse due to increased tachycardia. She states that she has had multiple episodes of COVID over the last few years. Family history is significant for hypertension in both parents, and the patient reports minimal alcohol use and occasional marijuana use. [facility] Medical History Allergic rhinitis Asthma Vitamin D deficiency Mixed hyperlipidemia Insomnia Herpes simplex type 1 infection Anxiety ADHD (attention deficit hyperactivity disorder) Surgical History Hx of wisdom tooth extraction Family History Father No problems noted. 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[employer] Gender identity: Female Cognitive needs: No Hearing needs: No Vision needs: No Female Reproductive History Menstrual Age of Menarche: 13 Review of Systems Const Denies chills, Denies fatigue, Denies fever(s), Denies frequent falls, Denies weakness, Denies weight gain and Denies weight loss ENT Reports dizziness Card Reports chest pain, Reports chest pain at rest, Reports chest pain with activity, Denies leg edema, Reports lightheadedness, Reports palpitations, Denies dyspnea, Denies dyspnea on exertion and Denies orthopnea Resp Denies cough, Denies dyspnea and Denies dyspnea on exertion GI Denies bloating and Denies change in bowel habits Musc Denies muscle weakness, Denies numbness and Denies tingling Neuro Reports dizziness, Denies frequent falls, Denies numbness, Denies tingling and Denies weakness Endo Denies fatigue and Reports palpitations Physical Exam Vital Signs: Last Vital Signs Pulse 70 05/25/25 11:11 BP 120/80 05/25/25 11:11 BMI result Body Mass Index 24.1 Const General: comfortable and no acute distress Orientation/consciousness: patient oriented x3 HEENT Other: Unremarkable Head: Yes normal to inspection Neck Neck: Yes normal visual inspection Chest Chest palpation & inspection: normal inspection of the chest Resp Auscultation: clear to auscultation bilaterally Cardio Palpation: normal PMI Heart sounds: S1 normal heart sound present, S2 normal heart sound present, no gallops, no murmurs and no rubs GI Palpation (GI): Soft to palpation Back/Spine/Pelvis Other: unremarkable Skin General skin exam: no rashes or lesions noted Neuro General: patient oriented x3 Extrem General: Yes normal to inspection Psych Mental Status: mental status grossly normal Office Procedures EKG Details: EKG with underlying sinus rhythm at 70/Min; sinus arrhythmias; rightward axis; [place] [id number], Complete Assessment & Plan Assessment & Plan (1) Tachycardia: Code(s): R00.0 - Tachycardia, unspecified Category: Medical (2) Precordial chest pain: Code(s): R07.2 - Precordial pain Category: Medical (3) Dizziness: Code(s): R42 - Dizziness and giddiness Category: Medical Plan Constellation of symptoms including dizziness, presyncope, tachycardia, noncardiac sounding chest pain, history of multiple episodes of COVID. Unclear if she truly has any POTS or if these symptoms are more related to anxiety extra. We will get comprehensive workup including echocardiogram, Holter and tilt-table test. Otherwise, mainly reassurance for now. If indeed if she has got any conclusive evidence of POTS, then consider low-dose beta-blockers. Discussion Notes I discussed with the patient the possibility of postural orthostatic tachycardia syndrome (POTS) and the need for further diagnostic testing, including a tilt table test and echocardiogram. We also considered the use of a Holter monitor to evaluate for arrhythmias. Patient was informed and verbally consented to the use of an ambient scribe for clinic note documentation during this visit. Orders: Orders ECG Tilt Table Test Today R42 - Dizziness and giddiness, R55 - Syncope and collapse CA echo transthoracic complete Today R42 - Dizziness and giddiness ECG 3 day holter monitor Today R00.2 - Palpitations, R42 - Dizziness and giddiness Patient Instructions: - Undergo a tilt table test, holter and echocardiogram as scheduled. - Follow up to discuss results. Coding Level of Care Code New Pt Level 4 (52027) Complex EM visit Add On G2211 Diagnoses Tachycardia R00.0 Precordial chest pain R07.2 Dizziness R42 CPT Codes EKG - CPT: [id number], Complete ([id number])
--- OUTSIDE RECORDS SUMMARY | 2025-05-25 13:25 | XMS_ITS | Clinical Summary ---
Author Organization [address] [place] [address] [place] [phone] Phone Care Team Providers Care Organisation And Methods Analyst Name Role Phone Kali Garza Primary Care [...] Cervical Cancer Screening: P ap Smear 2016 Social Influencers of Health Screening 07/10/2024 Depression Screening 09/02/2024 COVID-19 Vaccine ( - 2024-2 6 season) 2025 09/25/2020, 08/22/2020 Influenza Vaccine (#1) 2025 3, 05/31/2020 HIV [...] LAB CHEMISTRY METHOD 01/02/2025 1:21 AM EDT [facility] Blood Venous blood specimen / Unknown Venipuncture / Unknown 01/01/2025 11:55 PM EDT 01/01/2025 11:58 PM EDT Narrative [facility] - 01/02/2025 1:21 AM EDT [...] [facility] BLOOD ORDERABLES Clarita martinez Result [facility] [address] [place] [address], [place] [phone] * Hepatitis panel, acute with reflex to confirmation (01/01/2025 11:55 PM EDT) Pathologist [facility] Hepatitis B Surface Ag Negative Negative LAB CHEMISTRY METHOD 01/02/2025 1:22 AM EDT [facility] Hepatitis A Antibody IgM Negative Negative LAB CHEMISTRY METHOD 01/02/2025 1:22 AM EDT [facility] Hep B Core IgM Negative Negative LAB CHEMISTRY METHOD 01/02/2025 1:22 AM EDT [facility] Hepatitis C Antibody Negative Negative LAB CHEMISTRY METHOD 01/02/2025 1:22 AM EDT [facility] Blood Venous blood specimen / Unknown Venipuncture / Unknown 01/01/2025 11:55 PM EDT 01/01/2025 11:58 PM EDT [facility] BLOOD ORDERABLES Clarita martinez Result [facility] [address] [place] [address], from Last 3 Months or Most Recently Relevant to Health Maintenance Insurance A[employer] DOME[employer]IC A[employer] DOME[employer] Care Teams Organisation And Methods Analyst Relationship Specialty Start Date End Date Kali Garza PA PCP - General Physician Dimension Stone Quarry Supervisor 09/25/24
== END 2025-05-25 12:14 | disposition home or self-care (01) ==
LOC: HO.HCS 10:53
PROVIDERS: PCP Physician Assistant; Visit Provider Internal Medicine
DX: R00.0 Tachycardia, unspecified (principal); R07.2 Precordial pain; R42 Dizziness and giddiness
CPT/HCPCS: 93010; 99204; G2211

== ENCOUNTER → 2025-05-25 10:52 | Outpatient (BNVA) | payer OTHER, SELFPAY | PROVIDERS: PCP Physician Assistant; Visit Provider Internal Medicine | DX: R07.2 Precordial pain (principal); R00.0 Tachycardia, unspecified; R42 Dizziness and giddiness; R94.31 Abnormal electrocardiogram [ECG] [EKG] | CPT/HCPCS: 93005 ==

== ENCOUNTER 2025-06-22 10:31 | Outpatient (REF) | payer OTHER, SELFPAY ==
[2025-06-22 16:29] LABS: Bacterial Vaginosis PCR NEGATIVE (Negative); Candida Group PCR NOT DETECTED (Not Detect); Candida glab krusei PCR NOT DETECTED (Not Detect); Trichomonas vaginalis PCR NOT DETECTED (Not Detect)
[2025-06-22 17:01] LABS: CT PCR NOT DETECTED (Not Detect.); NG PCR NOT DETECTED (Not Detect.)
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
== END 2025-06-22 10:32 | disposition home or self-care (01) ==
LOC: HO.LNP 10:31
PROVIDERS: PCP Physician Assistant; Visit Provider Advanced Practice Midwife
DX: Z01.419 Encounter for gynecological examination (general) (routine) without abnormal findings (principal); Z30.09 Encounter for other general counseling and advice on contraception; D06.9 Carcinoma in situ of cervix, unspecified; Z20.2 Contact with and (suspected) exposure to infections with a predominantly sexual mode of transmission; Z11.51 Encounter for screening for human papillomavirus (HPV); Z87.42 Personal history of other diseases of the female genital tract
CPT/HCPCS: 81515; 87491; 87591; 87626; 88175

== ENCOUNTER 2025-06-22 10:31 | Outpatient (AMB) | payer OTHER, SELFPAY ==
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
[2025-06-22 10:38] VITALS: BP 118/72; BMI 23.6
== END 2025-06-22 12:01 | disposition home or self-care (01) ==
LOC: HO.HWSM 10:31
PROVIDERS: PCP Physician Assistant; Visit Provider Advanced Practice Midwife
DX: Z01.419 Encounter for gynecological examination (general) (routine) without abnormal findings (principal); Z87.42 Personal history of other diseases of the female genital tract; Z30.09 Encounter for other general counseling and advice on contraception; D06.9 Carcinoma in situ of cervix, unspecified
CPT/HCPCS: 99395; 99459

== ENCOUNTER → 2025-06-30 14:01 | Outpatient (REF) | payer OTHER, SELFPAY ==
--- NOTE | 2025-06-30 14:05 | HM_ITS ---
Conclusion: 1. Patient was monitored for total period of 3 days 2. Baseline was normal sinus rhythm with average heart of 97 beats per minute 3. No significant pauses noted next 4. Occasional PACs noted without sustained arrhythmias 4. Frequent sinus tachycardia noted with 45.6% of the time heart rate about 100 beats per minute 5. Patient reported multiple symptoms and triggered the marker 27 times with symptoms of palpitations, dizziness, racing heart rate correlating either with sinus tachycardia or PACs MTDD
--- NOTE | 2025-06-30 14:05 | CA_ITS ---
Transthoracic Echocardiogram Patient (Last, First, Middle): Magaly Diane A Gender: Female Date of : 1995 Age: 29 Procedure Date: 06/30/2025 Procedure Type: Transthoracic Echocardiogram Location: OP Height: 172.72 cm Weight: 70.31 kg BSA: 1.83 m2 Heart Rate: bpm BP: 118 / 78 mmHg Senior Dot Net Developer: PILLO Referring MD: Bryan Pa MD Symptoms: R42 - Dizziness and giddiness Study Quality: Adequate ECG Rhythm: Sinus Conclusions: - The left ventricular systolic function is normal. The calculated ejection fraction is 59% by biplane method. - No obvious valvular pathology seen on this study. Findings Left Ventricle Normal left ventricular cavity size. There is normal left ventricular wall thickness. The left ventricular systolic function is normal. The calculated ejection fraction is 59% by biplane method. There is no evidence of regional wall motion abnormalities. Diastolic function is normal for age. Right Ventricle Normal right ventricular cavity size and systolic function. Atria Both atria are normal in size. Aortic Valve There is a normal trileaflet aortic valve. There is no aortic valve stenosis. There is no aortic valve regurgitation. Mitral Valve The mitral valve appears normal. There is no mitral valve regurgitation. There is no mitral valve stenosis. Pulmonic Valve The pulmonic valve is likely normal. Tricuspid Valve There is trace tricuspid valve regurgitation. There is no evidence of pulmonary hypertension. Great Vessels The asc aorta is normal in size. Venous The inferior vena cava is normal in size and collapses greater than 50% with inspiration. Pericardium/Pleural There is no evidence of pericardial effusion. Prior Study Comparison No prior study available for comparison. Recommendations, Care & Conclusions No obvious valvular pathology seen on this study. Measurements 2D Linear Measurements IVSd: 0.79 0.6-0.9/0.6-1.0 cm LVIDd: 4.52 3.9-5.3/4.2-5.9 cm LVIDd Index: 2.47 2.4-3.2/2.2-3.1 cm/m2 LVIDs: 2.90 2.0-3.6 cm LVPWd: 0.90 0.7-1.1 cm LA Diam: 2.40 2.7-3.8/3.0-4.0 cm LAIDs Index: 1.31 1.5-2.3 cm/m2 LV Mass: 152.18 67-162/88-224 g LV Mass Index: 83.16 43-95/49-115 g/m2 LVOT Diam: 2.20 3.0+(-)1.3 cm 2D Systolic Function EF 4C: 56.30 >55% EF 2C: 64.20 >55% EF BiP: 59.40 >55% Mitral Valve MV Pk E: 0.59 MV PK A: 0.46 MV Decel Time: 275.00 E/A: 1.30 E'Lateral: 12.30 E'Medial: 9.36 E/E' Med: 6.30 E/E' Lat: 4.80 PHT: 80.00 MVA PHT: 2.75 Decel Prentiss: 2.15 Aortic Valve AoV Pk Robert: 1.36 AoV Mn Robert: 0.99 AoV VTI: 0.31 AoV Pk Grad: 7.00 Aov Mn Grad: 4.00 CARLA Cont.VTI: 2.74 LVOT LVOT Pk Rboert: 1.01 LVOT Mn Robert: 0.69 LVOT VTI: 0.22 LVOT Pk Grad: 4.00 LVOT Mn Grad: 2.00 LVOT Diam: 2.20 LVOT Area: 3.80 Diastolic Function MV Pk E: 0.59 MV Pk A: 0.46 E/A: 1.30 E'Medial: 9.36 E/E' Med: 6.30 E' Laterial: 12.30 E/E' Lat: 4.80 Right Ventricle TAPSE (mm): 20.40 TVS' Robert: 11.20 Tricuspid Valve TR Pk Robert: 1.56 TR Pk Grad: 10.00 RA Press: 3.00 RVSP: 13.00 Great Vessels Aorta Sinus of Valsalva: 2.71 2.0-3.[address] [place]: 1.94 1.7-3.4 cm Ao Asc: 2.70 2.1-3.4 cm Ao Arch: 2.50 Pulmonary Veins Pulm Vein S/D 0.70 Updated in Other Vendor System with Status of Final Bryan Pa MD electronically signed on 07/02/2025 12:32:12 PM with status of Final
--- OUTSIDE RECORDS SUMMARY | 2025-06-30 17:59 | XMS_ITS | Clinical Summary ---
Author Organization [address] [place] [address] [place] [phone] Phone Care Team Providers Care Dock Grader Name Role Phone Kali Garza Primary Care [...] EDT - 05/31/2025 1:07 AM EDT Emergency [facility] [address] [place] [id number] Needlestick injury of finger due to non-hypodermic [...] Info) Description 09/21/2025 1:45 PM EST Appointment [facility] [address] [place] [address] Health Maintenance Due Date Last [...] LAB CHEMISTRY METHOD 05/31/2025 2:00 AM EDT [facility] ([facility]) [facility] Blood Venous blood specimen / Unknown Venipuncture / Unknown 05/31/2025 12:32 AM EDT 05/31/2025 12:38 AM EDT us Tori ADAMS LAB BLOOD ORDERABLES Fin al Result Performing Organization Address [facility]/ZIP Co de Phone Number [facility] [address] [place] [address], [place] [phone] * HIV 1,2 antibody, p24 antigen with reflex to differentiation (05/31/2025 12:32 AM EDT) HIV Combo AB/AG Negative Negative LAB CHEMISTRY METHOD 05/31/2025 2:[address] [facility] Blood Venous blood specimen / Unknown Venipuncture / Unknown 05/31/2025 12:32 AM EDT 05/31/2025 12:38 AM EDT [facility] - 05/31/2025 2:01 AM EDT [...] ORDERABLES Fin al Result Performing Organization Address [facility] de Phone Number [facility] [address] [place] [address], [place] [phone] * Hepatitis B surface antigen with reflex to confirmation (05/31/2025 12:32 AM EDT) Hepatitis B Surface Ag Negative Negative LAB CHEMISTRY METHOD 05/31/2025 4:[address] [facility] Blood Venous blood specimen / Unknown Venipuncture / Unknown 05/31/2025 12:32 AM EDT 05/31/2025 12:38 AM EDT [facility] - 05/31/2025 4:09 AM EDT Over the counter supplements containing high doses of biotin may interfere with this assay. If interference is suspected, patients shoud be retested after refraining from biotin supplements for 72 hours. Tori AADMS LAB BLOOD ORDERABLES Fin al Result Performing Organization Address City/[facility]/ZIP Co de Phone Number [facility] [address] [place] [address], [place] [phone] * Hepatitis panel, acute with reflex to confirmation (05/31/2025 12:32 AM EDT) [facility] Hepatitis B Surface Ag Negative Negative LAB CHEMISTRY METHOD 05/31/2025 4:[address] [facility] Hepatitis A Antibody IgM Negative Negative LAB CHEMISTRY METHOD 05/31/2025 4:[address] [facility] Hep B Core IgM Negative Negative LAB CHEMISTRY METHOD 05/31/2025 4:[address] [facility] Hepatitis C Antibody Negative Negative LAB CHEMISTRY METHOD 05/31/2025 4:[address] [facility] Blood Venous blood specimen / Unknown Venipuncture / Unknown 05/31/2025 12:32 AM EDT 05/31/2025 12:38 AM EDT Tori ADAMS LAB BLOOD ORDERABLES Fin al Result Performing Organization Address City/[facility] Co de Phone Number [facility] [address] [place] [address], [place] [phone] * Hepatitis C virus quantitative molecular study (05/31/2025 12:32 AM EDT) [facility] HCV Qual Interp Not Detected Not Detected LAB MOLECULAR DIAGNOSTICS METHOD 06/01/2025 10:[address] [facility] Comment:HCV RNA not detected , unable to report quantitative results. Blood Venous blood specimen / Unknown Venipuncture / Unknown 05/31/2025 12:32 AM EDT 05/31/2025 12:38 AM EDT Tori ADAMS LAB BLOOD ORDERABLES Fin al Result Performing Organization Address City/[facility]/ZIP Co de Phone Number [facility] [address] [place] [address], [place] [phone] * hCG, serum, qualitative (05/31/2025 12:32 AM EDT) [facility] hCG Qual Negative Negative 05/31/2025 12:[address] [facility] Blood Venous blood specimen / Unknown Venipuncture / Unknown 05/31/2025 12:32 AM EDT 05/31/2025 12:38 AM EDT Tori ADAMS LAB BLOOD ORDERABLES Fin al Result Performing Organization Address [facility] Co de Phone Number [facility] [address] [place] [address], [place] [phone] * Comprehensive metabolic panel (05/31/2025 12:32 AM EDT) [facility] Sodium 138 133 - 145 mmol/L LAB CHEMISTRY METHOD 05/31/2025 1:03 AM [facility] Potassium 3.8 3.5 - 5.5 mmol/L LAB CHEMISTRY METHOD 05/31/2025 1:03 AM [facility] Chloride 106 96 - 110 mmol/L LAB CHEMISTRY METHOD 05/31/2025 1:03 AM [facility] CO2 26 21 - 32 mmol/L LAB CHEMISTRY METHOD 05/31/2025 1:03 AM [facility] Anion Gap 6 3 - 11 LAB CHEMISTRY METHOD 05/31/2025 1:03 AM [facility] Glucose 91 70 - 100 mg/dL LAB CHEMISTRY METHOD 05/31/2025 1:03 AM [facility] BUN 10 5 - 25 mg/dL LAB CHEMISTRY METHOD 05/31/2025 1:03 AM [facility] Creatinine 0.64 0.50 - 1.10 mg/dL LAB CHEMISTRY METHOD 05/31/2025 1:03 AM [facility] eGFR 123 >=60 mL/min/1. 73m2 LAB CHEMISTRY METHOD 05/31/2025 1:03 AM [facility] Comment:Calculation based on the Chronic Kidney Disease Epidemiology Collaboration (CKD-EPI) equation refit without adjustment for race. BUN/Creatinine Ratio 15.6 LAB CHEMISTRY METHOD 05/31/2025 1:03 AM [facility] Calcium 9.1 8.5 - 10.5 mg/dL LAB CHEMISTRY METHOD 05/31/2025 1:03 AM [facility] AST (SGOT) 17 10 - 42 unit/L LAB CHEMISTRY METHOD 05/31/2025 1:03 AM [facility] ALT (SGPT) 15 10 - 60 unit/L LAB CHEMISTRY METHOD 05/31/2025 1:03 AM [facility] Alkaline Phosphatase 58 42 - 121 unit/L LAB CHEMISTRY METHOD 05/31/2025 1:03 AM [facility] Total Protein 6.8 6.0 - 8.0 g/dL LAB CHEMISTRY METHOD 05/31/2025 1:03 AM [facility] Albumin 3.9 3.2 - 5.0 g/dL LAB CHEMISTRY METHOD 05/31/2025 1:03 AM [facility] Total Bilirubin 0.6 0.0 - 1.4 mg/dL LAB CHEMISTRY METHOD 05/31/2025 1:03 AM [facility] Blood Venous blood specimen / Unknown Venipuncture / Unknown 05/31/2025 12:32 AM EDT 05/31/2025 12:38 AM EDT us Tori ADAMS LAB BLOOD ORDERABLES Fin al Result [facility] [address] [facility] [place] [address], from Last 3 Months Insurance [employer] Member Subscriber Plan / Payer (Ef fective 2025-Present) Name:Magaly Diane Relation to Subscriber:Self Name:Magayl Diane Payer ID:[id number] Group ID:Not on file Type:Not on file Address: [id number] [employer] Care Teams Dock Grader Relationship Specialty Start Date End Date Kali Garza PA [address] [place] [phone] PCP - General Physician Yarn Carrier 09/25/24
== END ==
LOC: HO.CARD 14:01
PROVIDERS: PCP Physician Assistant; Visit Provider Internal Medicine
DX: R00.2 Palpitations (principal); R42 Dizziness and giddiness
CPT/HCPCS: 93242; 93306

== ENCOUNTER → 2025-06-30 14:05 | Outpatient (BNV) | payer OTHER, SELFPAY | PROVIDERS: PCP Physician Assistant; Visit Provider Internal Medicine | DX: R42 Dizziness and giddiness (principal) | CPT/HCPCS: 93306 ==

== ENCOUNTER 2025-09-01 10:08 | Outpatient (AMB) | payer OTHER, SELFPAY ==
[2025-09-01 10:11] VITALS: BP 122/68; PULSE 92; TEMP 36.2; O2SAT 98; BMI 24.5
--- NOTE | 2025-09-01 10:11 | A.OFFPC_ITS ---
Vital Signs 09/01/25 10:11 Height 5 ft 8 in Weight 161 lb 6 oz BMI 24.5 BP 122/68 Blood Pressure Location Lt brachial Position Sitting Pulse 92 Pulse Source Pulse Oximeter Temp 97.1 F Temp Source Temporal Artery Scan Pulse Oximetry (%) 98 Oxygen Delivery Method Room Air Intake Visit Reasons: 3 month f/u RE Allergies No Known Allergies Allergy (Verified 09/01/25 10:19) Medication List - Last Reconciled 09/01/25 by Kali Garza PA-C albuterol sulfate 90 mcg/actuation 2 puffs inhalation Q6H 30 days dextroamphetamine-amphetamine 20 mg ER (Adderall XR) 20 mg PO DAILY 28 days lorazepam 0.5 mg PO DAILY PRN 15 days Tobacco use date assessed: 09/01/25 Dental Screening Dental Screen Date: 09/01/25 Did you have a dental visit in the last 12 months?: Yes Did you have a dental problem in the last 6 months where you did not have access to dental care?: No Was dental information given to patient?: Patient has dentist HPI 3 month f/u RE HPI Details Patient is a 30 year female here today for a follow-up visit. Patient has a past medical history significant for asthma, ADHD, hyperlipidemia, LAUREN-3, generalized anxiety disorder. Concern-- > The patient developed left fifth to sixth intercostal pain around August 12 while she was feeling sick with a respiratory illness. At that time, she was diagnosed with reactive airway disease after a chest X-ray ruled out pneumonia, and tests for COVID, flu, and RSV were negative. The pain, described as a constant dull ache with intermittent sharp, burning sensations, has since migrated and now feels like it is in her bladder, with previous radiation to her scapula and shoulder. She expresses concern for kidney stones, noting an increased intake of soda and a family history of kidney stones in her brother. .. Tachycardia: The patient is undergoing a workup for Postural Orthostatic Tachycardia Syndrome (POTS) with cardiology. An echocardiogram showed some PACs and tachycardia, and she is scheduled for a tilt table test. She also has a history of Raynaud's phenomenon, with her fingers turning white in response to cold or stress, as w ell as livedo reticularis on her legs and stomach. . 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 She continues on Adderall 20 mg extended release though feels it is not lasting her the whole 12-16 hour shifts that she does. She is interested in increase dose of Adderall. .. Generalized anxiety disorder: The patient reports significant pre-shift anxiety and insomnia, for which Ativan has been helpful. She has been using non-pharmacologic techniques such as deep breathing exercises but feels her anxiety is situational and related to her stre ssful job. She receives therapy through a virtual service but feels she needs a consistent, in-person therapist. .. Hyperlipidemia: Most recent lipid panel showing improved total cholesterol and LDL. Cholesterol still remains borderline high. .. Asthma: Due to recent humid hot weather she did need to use her albuterol inhaler. Otherwise Asthma has been well controlled with only p.r.n. use of her albuterol inhale [facility] Medical History Allergic rhinitis Asthma Vitamin D deficiency Mixed hyperlipidemia Insomnia Herpes simplex type 1 infection Anxiety ADHD (attention deficit hyperactivity disorder) Surgical History Hx of wisdom tooth extraction Family History Father No problems noted. Mother Alcohol abuse Hypertension Paternal Grandmother CVD (cardiovascular disease) Stroke Paternal Grandfather Colon cancer Other Substance use disorder Social History Housing: Condominium Alcohol intake: current Alcohol intake frequency: holidays/special occasions only Patient Tobacco Use Status: Never used Tobacco e-Cigarette/Vaping Use: Never Used Substance Use Type: Marijuana service: No Current occupational status: employed Current occupation: Nurse-[employer] Gender identity: Female Cognitive needs: No Hearing needs: No Vision needs: No Female Reproductive History Menstrual Age of Menarche: 13 Questionnaire PHQ-9 Over the last 2 weeks, how often have you been bothered by any of the following problems? 1. Little interest or pleasure in doing things: not at all 2. Feeling down, depressed, or hopeless: not at all 3. Trouble falling or staying asleep, or sleeping too much: more than half the days 4. Feeling tired or having little energy: more than half the days 5. Poor appetite or overeating: several days 6. Feeling bad about yourself - or that you are a failure or have let yourself or your family down: not at all 7. Trouble concentrating on things, such as reading the newspaper or watching television: more than half the days 8. Moving or speaking so slowly that other people could have noticed. Or the opposite - being so fidgety or restless that you have been moving around a lot more than usual: not at all 9. Thoughts that you would be better off or of hurting yourself in some way: not at all Total score: 7 Depression Screening Interpretation: Positive Depression Screening Follow-up: Existing condition and In treatment Depression Screening Done: Yes 46225 - PHQ-9 Billing: Yes Source: Developed by Drs. Maxx Abebe, Jane Driver, Rangel Goodman and colleagues, with an educational den from [employer]. Thrive Questionnaire Date Thrive assessed: 01/12/25 I am a: Patient What is your living situation today?: I have a steady place to live Within the past 12 months, did the food you bought not last and you didn't have the money to get more?: I choose not to answer this question Within the past 12 months, did you worry whether your food would run out before you got money to buy more?: I choose not to answer this question Do you have trouble paying for medicines?: No Do you have trouble getting transportation to medical appointments?: No Do you have trouble paying your heating and electricity bill?: No Do you have trouble taking care of your child, family member or friend?: No Do you have trouble with day-to-day activities such as bathing, preparing meals, shopping, managing finances, etc.?: No Are you currently unemployed and looking for a job?: No Are you interested in more education?: I choose not to answer this question Currently or been in a relationship where the following occur: I choose not to answer THRIVE Score: 0 AUDIT C Alcohol Use Questionnaire (AUDIT-C) 1. How often do you have a drink containing alcohol?: Monthly or less 2. How many drinks containing alcohol do you have on a typical day when you are drinking?: 1 or 2 3. How often do you have six or more drinks on one occasion?: Never Total Score: 1 REMBERTO-7 AMB Questionnaire REMBERTO-7 Date REMBERTO - 7 assessed: 01/14/25 Feeling nervous, anxious, or on edge: 1 = Several days Not being able to stop or control worryin = Not at all Worrying too much about different things: 1 = Several days Trouble relaxin = Several days Being so restless that it is hard to sit still: 3 = Nearly every day Becoming easily annoyed or irritable: 1 = Several days Feeling afraid as if something awful might happen: 0 = Not at all Total REMBERTO-7 score (0-4 normal; 5-9 mild; 10-14 moderate; 15-21 severe): 7 Source: Developed by Drs. Maxx Abebe, Jane Driver, Rangel love nd colleagues, with an educational den from [employer]. REMBERTO-7 Assessment Billing REMEBRTO-7 Assessment Tool: REMBERTO-7 Assessment 13242 Review of Systems Const Denies headache(s) Eyes Denies loss of vision ENT Denies vertigo, Denies dizziness, Denies headache(s) and Denies sore throat Card Denies chest pain, Denies leg edema and Denies lightheadedness Resp Denies cough, Denies hemoptysis and Denies wheezing GI Denies abdominal pain, Denies melena, Denies constipation, Denies diarrhea and Denies vomiting Denies urinary frequency, Denies dysuria and Denies urinary urgency Musc Denies arthralgias, Denies joint swelling, Denies numbness and Denies tingling Neuro Denies Abnormal speech present, Denies behavioral changes, Denies vertigo, Denies dizziness, Denies headache(s), Denies loss of vision, Denies memory loss, Denies numbness and Denies tingling Psych Denies anxiety, Denies behavioral changes, Denies depression, Denies memory loss and Denies panic attacks Rm/Lymph Denies easy bleeding and Denies easy bruising Aller/Immun Denies wheezing Physical exam (Primary Care) Vital Signs: Last Vital Signs Temp 97.1 F 09/01/25 10:11 Pulse 92 09/01/25 10:11 BP 122/68 09/01/25 10:11 Pulse Ox 98 09/01/25 10:11 Oxygen Delivery Method Room Air 09/01/25 10:11 BMI result Body Mass Index 24.5 Tobacco/Smoking Status: Tobacco use Status Tobacco use date assessed 09/01/25 09/01/25 10:15 Patient Tobacco Use Status Never used Tobacco 09/01/25 10:15 e-Cigarette/Vaping Use Never Used 09/01/25 10:15 PHQ-9: PHQ-9 Score PHQ-9: Total score 7 09/01/25 10:21 Depression Screening Interpretation: Positive Depression Screening Follow-up: Existing condition and In treatment Thrive Assessment: Date of Thrive Assessment Date Thrive assessed 01/12/25 09/01/25 10:15 Currently or been in a relationship where the following occur: I choose not to answer Const General: healthy appearing, no acute distress, alert and awake Nutritional Appearance: well nourished Orientation/consciousness: oriented to person, oriented to place and oriented to time HENMT Ears: TM's normal bilaterally General nose exam: Normal nasal mucous membranes and turbinates present Eyes Conjunctivae: conjunctivae normal Sclerae: sclerae normal Pupils: Equal, round and reactive pupils present Neck Neck: Yes no lymphadenopathy and Yes no JVD Thyroid: Thyroid normal Carotids: no bruits Resp Effort & Inspection: normal respiratory effort and not tachypneic Auscultation: no crackles, no rales, no rhonchi and no wheezes Cardio Rate: regular rate Rhythm: regular rhythm Heart sounds: no murmurs and normal S1 and S2 GI Palpation (GI): Soft to palpation, nontender, no hepatomegaly and no splenomegaly Auscultation: normal bowel sounds Skin General skin exam: no rashes or lesions noted and dry skin Neuro General: oriented to person, oriented to place and oriented to time Cranial nerves: Yes Equal, round and reactive pupils present Speech: No Abnormal speech present Gait exam (Neuro): Normal gait present Motor exam (neuro): no tremor noted Extrem Right upper extremity: full ROM Left upper extremity: full ROM Right lower extremity: full ROM; no edema Left lower extremity: full ROM; no edema Psych Mental Status: mental status grossly normal Speech and movement: Normal speech and movement present Affect: normal affect Attitude: cooperative Thought process: Normal thought process present Coding Level of Care Code Est Pt Level 4 (35077) Diagnoses Attention deficit hyperactivity disorder (ADHD), predominantly inattentive type F90.0 Attention deficit-hyperactivity disorder type: predominantly inattentive Left flank pain R10.A2 LUQ abdominal pain R10.12 Mixed hyperlipidemia E78.2 Hyperlipidemia type: mixed hyperlipidemia Raynaud's disease without gangrene I73.00 Raynaud?s-associated gangrene presence: without gangrene Pre-syncope R55 REMBERTO (generalized anxiety disorder) F41.1 Additional Codes PHQ-9 - 94381 - PHQ-9 Billing: Yes ([id number]) REMBERTO-7 Assessment Billing - REMBERTO-7 Assessment Tool: REMBERTO-7 Assessment 27767 ([id number]) Assessment & Plan Assessment & Plan (1) ADHD (attention deficit hyperactivity disorder): Code(s): F90.9 - Attention-deficit hyperactivity disorder, unspecified type Category: Medical Qualifiers: Attention deficit-hyperactivity disorder type: predominantly inattentive Qualified Code(s): F90.0 - Attention-deficit hyperactivity disorder, predominan tly inattentive type Plan: Patient reports Adderall extended release has been helpful though 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 She is willing to increase her dose to 30 mg extended release. Will follow up in 3 months. (2) Left flank pain: Code(s): R10.A2 - Flank pain, left side Category: Medical Plan: To evaluate her left-sided abdominal pain and concern for nephrolithiasis, an order will be placed for a KUB x-ray and a urinalysis, with the latter to be completed after her menses. Additionally, an abdominal ultrasound will be ordered to assess for other pathologies related to her pain and early satiety, and the hospital will contact her for scheduling. (3) LUQ abdominal pain: Code(s): R10.12 - Left upper quadrant pain Category: Medical Plan: Will send patient for ultrasound he eval her spleen for splenomegaly (4) HLD (hyperlipidemia): Code(s): E78.5 - Hyperlipidemia, unspecified Category: Medical Qualifiers: Hyperlipidemia type: mixed hyperlipidemia Qualified Code(s): E78.2 - Mixed hyperlipidemia Plan: Patient has a history of hyperlipidemia. Has been trying to work on being more physically active and adapt to low-cholesterol diet (5) Raynauds syndrome: Code(s): I73.00 - Raynaud's syndrome without gangrene Category: Medical Qualifiers: Raynaud?s-associated gangrene presence: without gangrene Qualified Code(s): I73.00 - Raynaud's syndrome without gangrene Plan: Patient does have signs symptoms Raynaud's syndrome. At times Raynaud's syndrome comes along with other autoimmune diseases thus will check LADAN and double-stranded anti-DNA (6) Pre-syncope: Code(s): R55 - Syncope and collapse Category: Medical Plan: Coordinating tilt table test for POTS, lifestyle management discussed, cardiology follow-up planned. (7) REMBERTO (generalized anxiety disorder): Code(s): F41.1 - Generalized anxiety disorder Category: Medical Plan: Regarding her anxiety and insomnia, she will continue to use Ativan as needed. She is encouraged to re-establish care with a consistent, in-person therapist. The option to start a low-dose daily SSRI, such as fluoxetine, was discussed, and the patient can message via the portal if she decides to pursue this. Orders: Orders US abdomen complete 09/01/25 R10.12 - Left upper quadrant pain XR KUB 09/01/25 R10.A2 - Flank pain, left side UA CC w/rflx Micro + Cult 09/01/25 R10.A2 - Flank pain, left side, R30.0 - Dysuria Medications: New dextroamphetamine-amphetamine 30 mg ER (Adderall XR) 30 mg PO DAILY 28 caps 0RF 28 days F90.0 - Attention-deficit hyperactivity disorder, predominantly inattentive type Refilled lorazepam 0.5 mg PO DAILY PRN 7 tabs 1RF anxiety 15 days F41.1 - Generalized anxiety disorder Discontinued dextroamphetamine-amphetamine 20 mg ER (Adderall XR) Partial Fill upon patient request. Discontinued Reason: Doctor's Order 20 mg PO DAILY 28 days 28 caps 0RF F90.0 - Attention-deficit hyperactivity disorder, predominantly inattentive type
--- OUTSIDE RECORDS SUMMARY | 2025-09-01 11:15 | XMS_ITS | Clinical Summary ---
Author Organization [address] [place] [address] [place] [phone] Phone Care Team Providers Care Restoration Ecologist Name Role Phone Kali Garza Primary Care [...] AM EST Sexual Orientation Not on file Last Filed Vital Signs Vital Sign Reading [...] Info) Description 09/21/2025 1:45 PM EST Appointment [facility] [address] [place] [id number] Health Maintenance Due Date Last Done Comments Drug Screen 1995 Non-Opioid Controlled Substance Agreement 1995 DTaP,Tdap,and Td Vaccines (1 - Tdap) 2014 Hepatitis B Vaccines (1 of 3 - 19+ 3-dose series) 2014 Cervical Cancer Screening: Pap Smear 2016 HPV Vaccines (1 - 3-dose SCDM series) 2022 Social Influencers of Health Screening 07/10/2024 Depression Screening 09/02/2024 COVID-19 Vaccine ( season) 2025 09/25/2020, 08/22/2020 Influenza Vaccine (#1) [...] Priority Date/Time Associated Diagnosis Comments HEPATITIS C VIRUS QUANTITATIVE PCR STAT 05/31/2025 12:32 AM EDT HIV 1, 2 ANTIBODY, P24 ANTIGEN WITH REFLEX TO DIFFERENTIATION STAT 05/31/2025 12:32 AM EDT from Last 3 Months or Most Recently Relevant to Health Maintenance Results * HIV 1,2 antibody, p24 antigen with reflex to differentiation (05/31/2025 12:32 AM EDT) HIV Combo AB/AG Negative Negative LAB CHEMISTRY METHOD 05/31/2025 2:01 AM EDT [facility] Blood Venous blood specimen / Unknown Venipuncture / Unknown 05/31/2025 12:32 AM EDT 05/31/2025 12:38 AM EDT Narrative [facility] - 05/31/2025 2:01 AM EDT This assay is a 4th generation assay allowing for earlier detection of HIV infection by detecting the presence of the HIV-1 p24 antigen as well as the traditional antibodies to HIV type 1 (including group O) and type 2. Use of a 4th generation assay is the current CDC recommendation for HIV screening. us Tori AD[facility] LAB BLOOD ORDERABLES Fin al Result [facility] [address] [place] [address], * Hepatitis C virus quantitative molecular study (05/31/2025 12:32 AM EDT) HCV Qual Interp Not Detected Not Detected LAB MOLECULAR DIAGNOSTICS METHOD 06/01/2025 10:32 AM EDT [facility] Comment:HCV RNA not detected , unable to report quantitative results. Blood Venous blood specimen / Unknown Venipuncture / Unknown 05/31/2025 12:32 AM EDT 05/31/2025 12:38 AM EDT us Tori ADAMS LAB BLOOD ORDERABLES Fin al Result [facility] [address] [place] [address], from Last 3 Months or Most Recently Relevant to Health Maintenance Insurance [employer] [facility] [employer], [facility] [employer] Care Teams Restoration Ecologist Relationship Specialty Start Date End Date Kali Garza PA [address] [place] [phone] PCP - General Physician Quality Review Specialist 09/25/24
== END 2025-09-01 10:45 | disposition home or self-care (01) ==
LOC: HO.HMCH 10:09
PROVIDERS: PCP Physician Assistant; Visit Provider Physician Assistant
DX: F90.0 Attention-deficit hyperactivity disorder, predominantly inattentive type (principal); R10.A2 Flank pain, left side; R10.12 Left upper quadrant pain; E78.2 Mixed hyperlipidemia; I73.00 Raynaud's syndrome without gangrene; R55 Syncope and collapse; F41.1 Generalized anxiety disorder

== ENCOUNTER 2025-09-01 10:08 | Outpatient (REF) | payer OTHER, SELFPAY ==
--- NOTE | ~2025-09-01 | XR_ITS ---
EXAMINATION: XR ABDOMEN KUB CLINICAL INDICATION: R10.A2 - Flank pain, left side COMPARISON: None available. TECHNIQUE: AP view of the abdomen, supine. FINDINGS: The bowel gas pattern is normal with no evidence of ileus or obstruction. No unusual soft tissue calcifications are noted. No indirect evidence of free air. The bones are unremarkable. XR/XR KUB IMPRESSION: Normal KUB radiograph. Electronically signed by: Mono Powell MD 09/01/2025 11:30 AM LION
[2025-09-01 11:21] LABS: Hematocrit 42.1 % (37.0-47.0); Hemoglobin 13.6 g/dl (12.0-16.0); Mean Corpuscular HGB Conc 32.3 g/dl (31.0-35.0); Mean Corpuscular Hemoglobin 29.4 pg (27.0-33.0); Mean Corpuscular Volume 90.9 fL (80.0-98.0); NRBC Abs Auto 0.000 X10*3/uL (0.0-0.012); NRBC Pct Auto 0.0 /100WBC (0.0-0.2); Platelet Count 372 X10*3/uL (160-400); Red Blood Count 4.63 X10*6/uL (4.20-5.50); White Blood Count 6.4 X10*3/uL (4.8-10.8)
[2025-09-01 12:05] LABS: Alanine Aminotransferase 19 U/L (0-31); Albumin Level 4.6 g/dL (3.5-5.0); Alkaline Phosphatase 65 U/L (39-117); Anion Gap 11 (12-20); Aspartate Amino Transferase 19 U/L (5-31); Blood Urea Nitrogen 10 mg/dL (9-16); Calcium 9.2 mg/dL (8.4-10.2); Carbon Dioxide 28 mmol/L (22-29); Chloride 106 mmol/L (96-108); Cholesterol 233 mg/dL (<200); Estimated Glomerular Filt Rate > 60; HDL Cholesterol 58 mg/dL (>40); Potassium 4.4 mmol/L (3.3-5.1); Sodium 141 mmol/L (135-145); Total Protein 7.3 g/dL (6.5-8.0); Triglycerides 102 mg/dL (<150)
== END 2025-09-01 10:09 | disposition home or self-care (01) ==
LOC: HO.LAB 10:08
PROVIDERS: PCP Physician Assistant; Visit Provider Physician Assistant
DX: R10.A2 Flank pain, left side (principal); E78.2 Mixed hyperlipidemia; Z13.31 Encounter for screening for depression
CPT/HCPCS: 36415; 74018; 80053; 80061; 85027; 96127

== ENCOUNTER → 2025-09-01 11:10 | Outpatient (BNV) | payer OTHER, SELFPAY | PROVIDERS: PCP Physician Assistant; Visit Provider Radiology Diagnostic Radiology | DX: R10.A2 Flank pain, left side (principal) | CPT/HCPCS: 74018 ==